=== PATIENT | female | born 1935 | race Caucasian/White ===

== ENCOUNTER 2023-09-11 14:40 | Day surgery (SDC) | payer OTHER, BC ==
[2023-09-08 13:44] LABS: Absolute Lymphocytes (CBC) 1.5 K/uL (0.7-4.9); Hematocrit 37.4 % (36.0-45.0); Lymphocytes % 13.9 % (15.3-44.8); MCV 88.2 fL (80-100); MPV 8.2 fL (7.6-11.3); Platelets 250 thou/uL (152-406); RBC Red Blood Cell Count 4.24 M/uL (3.86-4.86)
[2023-09-08 13:55] LABS: Protime INR 1.04
[2023-09-08 13:56] LABS: Potassium 4.3 mEq/L (3.5-5.1)
--- NOTE | 2023-09-08 13:56 | RAD REPORT ---
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 COMPARISON: CHEST PA AND LAT 2 VIEW dated 03/13/2010; CHEST PA AND LAT 2 VIEW dated 12/04/2008; CHEST P A AND LAT 2 VIEW dated 04/14/2007 TECHNIQUE: PA and lateral views of the chest were obtained. FINDINGS: The lungs are hyperexpanded compatible with COPD. The heart is upper limit of normal in si ze. No fracture or aggressive bony process. IMPRESSION: COPD without acute process identified. The USPSTF recommends annual screening for lung cancer with low-dose CT (LDCT) in adults aged 50 to 8 0 years who have a 20 pack-year smoking history and currently smoke or have quit within the past 15 y ears.
--- NOTE | 2023-09-09 18:06 | EKG ---
Test Date: 2023-09-08 Test Time: 13:20:28 Bioprocessing Manufacturing Technician: BHASKAR MEASUREMENT RESULTS: Intervals: Rate: 51 [place]: 182 QRSD: 138 QT: 534 QTc: 492 [place]: P: 58 [place]: 182 QRS: -41 T: 78 INTERPRETIVE STATEMENTS: Sinus bradycardia Left axis deviation Right bundle branch block Abnormal ECG Compared to ECG 10/14/2005 13:51:00 Left-axis deviation now present Right bundle-branch block now present Electronically Signed On 09-09-23 18:03:29 CDT by Andrew Curry
[2023-09-11 15:56] VITALS: TEMP 98
[2023-09-11] MEDS ORDERED: FENTANYL CITR 100 MCG/2 ML ONE ×2 (15:59→17:29)
[2023-09-11] MEDS ORDERED: LIDOCAINE 1% 20 ML MDV ONE ×2 (15:59→16:33)
[2023-09-11] MEDS ORDERED: MIDAZOLAM HCL 2 MG/2 ML INJ ONE ×2 (15:59→17:29)
[2023-09-11] MEDS ORDERED: CLOPIDOGREL 75 MG TABLET ONE (15:59)
[2023-09-11] MEDS ORDERED: ASPIRIN 325 MG TAB ONE (16:00)
[2023-09-11] MEDS ORDERED: TICAGRELOR 90 MG TABLET PO ONE (16:00)
[2023-09-11] MEDS ORDERED: NA CHLORIDE 0.9% 500 ML ONE (16:00)
[2023-09-11] MEDS ORDERED: ATROPINE SULF 1 MG/10 ML SYR IV ONE ×3 (16:00→17:30)
[2023-09-11] MEDS ORDERED: DIPHENHYDRAMINE 50 MG/ML VIAL ONE (16:07)
[2023-09-11] MEDS ORDERED: METHYLPREDNISOLONE 125 MG INJ ONE (16:08)
[2023-09-11] MEDS ORDERED: HEPARIN 10,000 UNIT/10 ML VIAL IV ONE ×2 (16:45→16:46)
[2023-09-11] MEDS ORDERED: REGADENOSON 0.4 MG/5 ML SYR IV ONE (16:46)
[2023-09-11] MEDS ORDERED: HEPARIN 5000 UNIT/ML 1 ML VIAL ONE (17:29)
[2023-09-11] MEDS ORDERED: HEPA 1000U/500MLS 2,000 UNIT/1,000 ML BAG IV ONE (17:29)
[2023-09-11 19:05] VITALS: O2SAT 95
[2023-09-11 19:47] VITALS: BP 131/84
--- NOTE | 2023-09-11 20:08 | OP ---
Date of Procedure: 09/11/2023 Surgeon: MICHEAL HECK Procedure Performed: 1.Selective coronary angiogram. 2.Left heart catheterization. 3.Right heart catheterization. Indication: Aortic valve stenosis and chest pain. Access: 1.Right femoral vein, 7-S[place], closed with manual pressure. 2.Right IJ, 7-[place], closed with manual pressure. 3.Right femoral artery, 6-[place], closed with 6-S[place] Angio-Seal. Complications: None. Bleeding: Less than 20 mL. Anesthesia: Total sedation time was 1 hour. Description Of Procedure: After risks, benefits, and alternatives were explained, the agreed to proc edure, and signed informed consent. Patient was brought to the cardiac catheterization laboratory, p repped and draped in usual sterile fashion. Then, I accessed right femoral artery using micropunctur e kit, ultrasound guidance, and fluoroscopy. Placed 6-S[place] Arabian Pyote sheath and accessed right femo ral vein as well. I could not pass a Maupin through the right femoral vein site, so I accessed the rig ht IJ using micropuncture kit, ultrasound guidance, and placed a 6-S[place] Pyote sheath and took a 7-S[place] balloon-tipped Maupin catheter through the right IJ access into right atrium, right ventricle, pulmonary artery and wedge, obtained waveform and pressure and then thermodilution cardiac output wa s obtained and then removed the Maupin. Then, I took 6-S[place] JL3-5 catheter through the arterial acce ss in the femoral artery into the aortic root, engaged the left main, took standard views, and then t ook 3DRC catheter, engaged the RCA, took standard views and then I passed the catheter over the wire into the LV, measured the LVEDP, pullback recorded a gradient, and then I gave systemic heparin to as sure ACT level above 250 and took EBU 3.5 guide 6-S[place] to the aortic root, engaged the left main, a nd took a pressure wire into the aortic root. Pressures were equalized and then the pressure wire wa s advanced into the LAD passing the area of stenosis and FFR was performed using Lexiscan. It was 0. 92, and then pullback did not show any drift. Final angiogram was satisfactory and then removed the catheter, the guide, and the sheath and placed a 6-S[place] Arabian Angio-Seal for closure and removed the femo ral vein sheath and the IJ sheath and manual pressure was used in both locations with good hemostasis . Findings: 1.Left main: Large and normal. 2.LAD: In the proximal segment right before the bifurcation of D1, there is 60% stenosis. FFR is 0 .92. The rest of the LAD is normal. Normal diagonal branches. 3.The circumflex is large and dominant and normal. 4.RCA small, nondominant normal. 5.LVEDP elevated at 20 mmHg. 6.Right heart catheterization showed RA pressure of 9. RV pressure 44/1, mean of 11. PA pressure 4 5/17, mean of 28. Pulmonary wedge was 17 and LVEDP was 20. Cardiac output was 4.9 L/minute. Mean g radient across aortic valve was 21 mmHg and valve area was 1.24 sq cm. Conclusion: 1.Moderate proximal LAD stenosis, negative by FFR 0.92. 2.Moderate aortic valve stenosis with a mean gradient of 21 mmHg and valve area of 1.24 sq cm. 3.Elevated LVEDP and filling pressure. Plan: Continue medical management and monitoring and diuretics. SR/MODL Voice ID: [id number] Report ID: [id number]
== END 2023-09-11 19:52 | disposition home or self-care (01) ==
LOC: CCL 14:40
PROVIDERS: ATTEND Internal Medicine
DX: I35.0 Nonrheumatic aortic (valve) stenosis (principal); I25.10 Atherosclerotic heart disease of native coronary artery without angina pectoris; I10 Essential (primary) hypertension; E78.2 Mixed hyperlipidemia; Z87.891 Personal history of nicotine dependence; Z79.82 Long term (current) use of aspirin; Z79.899 Other long term (current) drug therapy; Z82.49 Family history of ischemic heart disease and other diseases of the circulatory system
CPT/HCPCS: 93005; 85025; 80048; 36415; 83721; 85610; 85730; 71046; 93460; 76937; 93571; C1893; Q9966; C1760; G0269; J1644; J2785; J2001 ×2; J1200; J0461 ×2; J2250 ×2; J3010 ×2; J2930; J7040; C1769

== ENCOUNTER → 2024-07-25 | Day surgery (SDC) | payer OTHER, BC ==
--- NOTE | 2024-07-18 12:03 | RAD REPORT ---
EXAM DESCRIPTION: RAD - Chest Single View - 07/18/2024 11:53 am CLINICAL HISTORY: pre procedure Chest pain. COMPARISON: Chest Pa And Lat (2 Views) dated 09/08/2023; CHEST PA AND LAT 2 VIEW dated 03/13/2010; AMMY ST PA AND LAT 2 VIEW dated 12/04/2008; CHEST PA AND LAT 2 VIEW dated 04/14/2007 FINDINGS: Portable technique limits examination quality. Mild pulmonary edema. The heart is moderately enlarged. No displaced fractures.Significant degenerati ve change right shoulder. IMPRESSION: Mild CHF.
[2024-07-18 12:18] LABS: Absolute Basophils 0.1 K/uL (0-0.5); Absolute Eosinophils 0.3 K/uL (0-0.5); Absolute Lymphocytes (CBC) 1.2 K/uL (0.7-4.9); Absolute Monocytes 0.7 K/uL (0.1-1.3); Absolute Neutrophil 8.1 K/uL (1.8-8.0); Basophils % 0.6 % (0-1.3); Eosinophils % 2.7 % (0-4.4); Hematocrit 34.8 % (36.0-45.0); Hemoglobin 11.4 g/dL (12.0-15.0); Lymphocytes % 11.3 % (15.3-44.8); MCH 28.7 pg (27.0-35.0); MCHC 32.6 g/dL (32.0-36.0); MCV 87.9 fL (80-100); Neutrophils % 78.4 % (41.7-73.7); Platelets 239 thou/uL (152-406); RBC Red Blood Cell Count 3.96 M/uL (3.86-4.86); Red Cell Distribution Width 13.7 % (12.1-15.2)
[2024-07-18 12:30] LABS: Anion Gap 8.5 mEq/L (5.0-15.0); Potassium 4.5 mEq/L (3.5-5.1)
[2024-07-18 12:36] LABS: PT Prothrombin Time 12.6 SECONDS (9.4-12.5); Protime INR 1.13
--- NOTE | 2024-07-19 16:56 | EKG ---
Test Date: 2024-07-18 Test Time: 11:00:08 Director Product: ILAN MEASUREMENT RESULTS: Intervals: Rate: 51 ID: [id number] QRSD: 144 QT: 530 QTc: 488 [place]: P: 71 ID: [id number] QRS: -47 T: 67 INTERPRETIVE STATEMENTS: Sinus bradycardia Right bundle branch block Left anterior fascicular block Bifascicular block Septal infarct, age undetermined Abnormal ECG Compared to ECG 09/08/2023 13:20:28 Left anterior fascicular block now present Bifascicular block now present Myocardial infarct finding now present Left-axis deviation no longer present Electronically Signed On 07-19-24 16:53:19 CDT by Andrew Curry
[~2024-07-25] MED LIST: ATROPINE SULF 1 MG/10 ML SYR IV ONE; FENTANYL CITR 100 MCG/2 ML ONE; HEPA 1000U/500MLS 2,000 UNIT/1,000 ML BAG IV ONE; HEPARIN 10,000 UNIT/10 ML VIAL IV ONE; HEPARIN 5000 UNIT/ML 1 ML VIAL ONE; LIDOCAINE 1% 20 ML MDV ONE; MIDAZOLAM HCL 2 MG/2 ML INJ ONE; NA CHLORIDE 0.9% 500 ML ONE; VERAPAMIL HCL 10 MG/4 ML VIAL IV ONE
[2024-07-25 17:15] VITALS: BP 158/61
[2024-07-25 17:18] VITALS: O2SAT 99
--- NOTE | 2024-07-25 22:09 | OP ---
Date of Procedure: 07/25/2024 Surgeon: MICHEAL HECK Procedure Performed: Peripheral angiogram. Indications: 1.Peripheral vascular disease. 2.Evaluation for TAVR access as I was not able to see the groin arteries in the CT. Access: Right radial artery 6-Marshallese, closed with TR band. Complications: None. Bleeding: Less than 50 mL. Total Sedation Time: 45 minutes. Description Of Procedure: After risks, benefits, and alternatives were explained, patient agreed to procedure and signed informed consent. The patient was brought into cardiac catheterization laborato , prepped and draped in sterile fashion. Then, I accessed right radial artery using pediatric micr opuncture kit, placed 6-Marshallese slender sheath and took a long 4-Marshallese pigtail catheter, placed in di stal aorta, performed distal aortogram with runoff. Then, I removed the catheter and the sheath, jessica shannan TR band with good hemostasis. Findings: 1.Left distal aorta was widely patent. 2.Right lower extremity, right common iliac, external iliac, internal iliac, common femoral artery, profunda are widely patent without disease. The SFA is widely patent all the way to the distal porti on. There is mild 20% to 30% stenosis and three-vessel runoff below the knee are widely open. 3.Left lower extremity, slightly more tortuous, but normal. Common iliac, external iliac, internal iliac, common femoral, and profunda. SFA is widely normal. There is focal 40% distally and poplitea l artery is normal. Anterior tibial is normal and posterior tibial is occluded and peroneal is carlos l. Conclusion: 1.Peripheral vascular disease as above, mainly posterior tibial on the left side is occluded. Other kay, it is mild SFA disease bilaterally. 2.Widely patent common femoral, iliac arteries both sites suitable for TAVR. Recommendation: Medical management and proceed with TAVR with the right common femoral artery being the access site. SR/MODL Voice ID: [id number] Report ID: [id number]
== END ==
LOC: CCL 13:14
PROVIDERS: ATTEND Internal Medicine
DX: I70.223 Atherosclerosis of native arteries of extremities with rest pain, bilateral legs (principal); I70.92 Chronic total occlusion of artery of the extremities; I25.10 Atherosclerotic heart disease of native coronary artery without angina pectoris; I35.0 Nonrheumatic aortic (valve) stenosis; I10 Essential (primary) hypertension; E78.2 Mixed hyperlipidemia; Z87.891 Personal history of nicotine dependence; Z79.82 Long term (current) use of aspirin; Z79.899 Other long term (current) drug therapy; Z91.013 Allergy to seafood; Z82.49 Family history of ischemic heart disease and other diseases of the circulatory system
CPT/HCPCS: 93005; 85025; 80048; 36415; 85610; 85730; 71045; 36200; 75630; 76937; C1893; J1644; J2001; J3010; J7040; 99152; J0461; J2250

== ENCOUNTER 2024-08-20 15:50 | Inpatient (IN) | payer OTHER, BC ==
[2024-08-21] MEDS ORDERED: ACETAMINOPHEN 500 MG TAB PO PRN (00:31)
[2024-08-21 00:41] VITALS: BMI 37.5
[2024-08-21 05:40] LABS: Absolute Basophils 0.1 K/uL (0-0.5); Absolute Eosinophils 0.5 K/uL (0-0.5); Absolute Lymphocytes (CBC) 1.7 K/uL (0.7-4.9); Absolute Monocytes 1.4 K/uL (0.1-1.3); Basophils % 0.8 % (0-1.3); Hematocrit 31.6 % (36.0-45.0); Hemoglobin 10.1 g/dL (12.0-15.0); Lymphocytes % 13.7 % (15.3-44.8); MCH 27.9 pg (27.0-35.0); MCHC 32.1 g/dL (32.0-36.0); MCV 86.9 fL (80-100); MPV 8.3 fL (7.6-11.3); Monocytes % 10.8 % (3.3-12.3); Neutrophils % 70.7 % (41.7-73.7); Platelets 171 thou/uL (152-406); RBC Red Blood Cell Count 3.64 M/uL (3.86-4.86); Red Cell Distribution Width 13.4 % (12.1-15.2)
[2024-08-21 05:56] LABS: Albumin 2.2 g/dL (3.4-5.0); Anion Gap 8.1 mEq/L (5.0-15.0); Magnesium 2.1 mg/dL (1.6-2.4); Potassium 4.1 mEq/L (3.5-5.1); Prealbumin 10.2 mg/dL (20-40)
[2024-08-21] MEDS: LEVOTHYROXINE SOD 0.112 MG TAB PO SCH (07:11)
[2024-08-21] MEDS: DOCUSATE NA/SENNA CONC 1 TAB PO SCH (07:11)
[2024-08-21] MEDS: PANTOPRAZOLE 40MG TABLET PO SCH (07:11)
[2024-08-21] MEDS: LEVOTHYROXINE SOD 0.025 MG TAB PO SCH (07:12)
[2024-08-21] MEDS: MEMANTINE HCL 10 MG TABLET PO SCH (07:12)
[2024-08-21] MEDS: lisinopriL 20 MG TAB PO SCH (07:13)
[2024-08-21] MEDS: DONEPEZIL HCL 5 MG TAB PO SCH (07:13)
[2024-08-21] MEDS: ASPIRIN 81 MG CHEWABLE TABLET PO SCH (07:13)
[2024-08-21] MEDS: ESCITALOPRAM 20 MG TAB PO SCH (07:13)
[2024-08-21] MEDS: hydroCHLOROthiazide 12.5 MG CAP PO SCH (07:14)
[2024-08-21] MEDS: FLUTICASONE 50MCG NASAL SPRAY NAS SCH (08:00)
[2024-08-21] MEDS: FEXOFENADINE 180 MG TAB PO SCH (08:00)
[2024-08-21] MEDS: TOLTERODINE LA 4 MG CAP PO SCH (08:55)
[2024-08-21] MEDS: FUROSEMIDE 20 MG TABLET PO SCH (08:56)
[2024-08-21 12:07] LABS: Specific Gravity 1.008 (1.005-1.030); Sqamous Epithelial <5 /HPF (None Seen); Urine Bacteria None Seen /HPF (<20); Urine Bilirubin NEGATIVE (Negative); Urine Blood Negative (Negative); Urine Clarity Clear (Clear); Urine Color Colorless (Yellow); Urine Culture Reflex Order NOT NEEDED; Urine Glucose NEGATIVE (Negative); Urine Ketones NEGATIVE (Negative); Urine Micro Reflex YN NO BILL MICROSCOPIC; Urine Nitrite NEGATIVE (Negative); Urine Protein NEGATIVE (Negative); Urine RBC <5 /HPF (None Seen); Urine Urobilinogen Normal (Normal); Urine WBC <5 /HPF (<5); Urine pH 6.5 (5.0-7.0)
[2024-08-21] MEDS: APIXABAN 2.5 MG TABLET PO SCH (19:18)
[2024-08-21] MEDS: ROSUVASTATIN 5 MG TAB PO SCH (19:18)
[2024-08-21] MEDS: CRANBERRY FRUIT EXTRACT 200 MG CAP PO SCH (19:18)
[2024-08-22] MEDS: FLUTICASONE 50MCG NASAL SPRAY NAS SCH (09:14)
[2024-08-22] MEDS: FEXOFENADINE 180 MG TAB PO SCH (09:15)
[2024-08-22] MEDS: ENSURE ENLIVE 237 ML CAN PO SCH (10:14)
[2024-08-22] MEDS ORDERED: ENSURE ENLIVE 237 ML CAN PO PRN (10:57)
--- NOTE | 2024-08-22 12:16 | RAD REPORT ---
EXAMINATION: ONE VIEW CHEST XR CLINICAL INDICATION: cough TECHNIQUE: Frontal chest projection is submitted. Examination is limited by patient positioning and t echnique. COMPARISON: 07/18/2024 FINDINGS: The lungs are mildly fibrotic but clear of acute infiltrate. Heart is mildly enlarged with a dual-esvin d pacer device present. Aortic valve stent noted. Quite advanced degenerative changes are seen in the right shoulder. IMPRESSION: No acute intrathoracic abnormalities.
--- NOTE | 2024-08-22 20:42 | HP ---
Date of Admission: 08/20/2024 Date of service: 08/21/24 Time of service: 6 p.m. Chief Complaint: "I had heart surgery and I am weak. I need to get stronger." History Of Present Illness: Ms. Callejas is an 89-year-old right-handed patient with hypertension, dyslipidemia, hypothyroidism, nonrheumatic mitral valve disease, aortic stenosis, GE reflux, who was admitted to [facility] on 08/16/2024 for TAVR procedure. Procedure was complicated by heart block, requiring temporary pacemaker. On 08/17, she went back to have a permanent pacemaker placed. She was put on aspirin, Plavix, statin, and had IV fluid management with Lasix and potassium replacement. She had trending up white blood cell count to 11.5 on 08/18 up to 14, subsequently. In terms of her capacity of her level of functioning prior to her requiring the TAVR procedure, she was able to function with minimum assistance and continued performing her activities of daily living without significant difficulty. Subsequently, she is nonweightbearing status in the left upper extremity after the pacemaker placement. She does require increased assistance for transfers, maximum assistance for bed mobilization and to just be able to maintain her position upright at the edge of the bed. She also has had a rotator cuff surgery in the right upper extremity and arthritis, which has caused significant increase in her pain level. At this point, given her recent cardiac procedure, CHF myopathy, from the time of hospitalization, it is determined that she is a more appropriate candidate for inpatient rehabilitation versus to be discharged to alf where she is likely to not thrive. This may help return her to her prior level of functioning and reduce the risk of rehospitalization. Past Medical History: Dementia, GE reflux, TIA, right total knee replacement, right rotator cuff surgery, status post TAVR procedure, and dual pacemaker placement. Allergies: CLAVULANIC ACID, GABAPENTIN, NAPROXEN, PENICILLIN, PHENYTOIN, SHRIMP, AND PIROXICAM. Current Medications: Tylenol Extra Strength 500 mg every 4 hours as needed, Eliquis 2.5 mg twice daily, aspirin 81 mg daily, Aricept 10 mg twice daily, Lexapro 10 mg daily, Fela 90 mg daily, Lasix 20 mg daily, hydrochlorothiazide 12.5 mg daily, levothyroxine 0.025 mg daily plus 0.112 mg daily, Prinivil 20 mg daily, Namenda 10 mg daily, Ensure Enlive 237 mL twice daily, Protonix 40 mg daily, Crestor 5 mg at bedtime, Senokot-S 2 twice daily, and Detrol long-acting 4 mg daily. Family History: Noncontributory. X-ray/imaging: Chest x-ray on 07/19 shows interval placement of a left pacemaker and removal of right-sided pacemaker. Otherwise, no acute changes. Chest x-ray, 08/18, borderline cardiomegaly with signs of mild vascular congestion, pulmonary edema. Left chest wall, 2-lead pacemaker noted, well positioned, and cardiac leads. Laboratory Studies: White blood cell count is 12.7, hemoglobin 10.1, platelets 173. Her neutrophils are 70.7. Sodium 141, potassium 4.1, chloride 105, carbon dioxide 32, creatinine 1.24, BUN 29, glucose 105, calcium 8.5, magnesium 2.1, albumin 2.2, prealbumin 10.2. Urinalysis is completely normal. Social History: No alcohol, tobacco, or IV drug use. Patient lives in a single-family home. Code status is full code. Review of Systems: Some mild swelling in the legs. Mild shortness of breath. Otherwise, diffuse weakness in the upper and lower extremities, more proximal than distal. Current Level Of Functioning: Eating, setup assistance. Supervision for oral hygiene. Dependent for toilet hygiene. Maximum assistance for showering. Upper body dressing, also maximum assistance. Lower body dressing, dependent. For rolling [id number] and [id number], she is for maximum assistance to dependent. Lying to sitting to standing, maximum assistance. Transferring to a wheelchair, maximum assistance. Onto the toilet and shower, maximum assistance. Ambulation, maximum assistance with a rolling walker 2 feet. Physical Examination: Vital Signs: Blood pressure 157/70, pulse 60, respiratory rate 17, temperature 97.9, oxygen saturation 95%. Weight 240 pounds. Height 5 feet 7 inches, BMI 37.6. General: Ms. Callejas is resting comfortably in no acute distress. She is planning to using the restroom. HEENT: Normocephalic, atraumatic. Sclerae anicteric. Oropharynx pink and moist. Neck: Supple. Chest: Mildly decreased breath sounds. Extremities: Mild edema in the lower extremities. Proximal weakness over distal in the upper and lower extremities, 4/5, stocking-glove loss, light touch and temperature. Rehab And Medical Assessment And Plan: Ms. Callejas is admitted to the inpatient rehabilitation unit with impairment category 06, neurological condition. Her impairment group code is 03.8, neuromuscular disorders. Etiologic diagnosis, CHF myopathy. Comorbidities are aortic stenosis, coronary artery disease, cardiomegaly, decreased mobility, decreased physical functioning, dementia, hypertension, hypothyroidism, leukocytosis, pacemaker placement, pulmonary edema, pulmonary hypertension, tachycardia with recurrent falls. In addition, there is venous insufficiency and nonrheumatic mitral valve stenosis. Plan: She will have physical, occupational, and speech therapy for 3.5 hours, 5 of 7 days. I will manage hypothyroidism by continuing Synthroid a total of 0.137 mg daily, Prinivil for hypertension at 20 mg daily along with hydrochlorothiazide and Lasix for fluid management. I will continue aspirin 81 mg daily for stroke risk reduction, donepezil 10 mg twice daily and memantine 10 mg daily for dementia, Tylenol for pain. For depression, Lexapro 10 mg daily. For allergies, Fela 90 mg daily. For GE reflux, continue Protonix 40 mg daily. For dyslipidemia, Crestor 5 mg at bedtime. She also has Senokot S for constipation, and for urinary retention, Detrol long-acting. Comorbidities That Are Impacting Rehabilitation: There is a potential for pneumonia and she will have chest x-ray done. She will have incentive spirometry performed. We will have white count repeated and if need be, we will have procalcitonin lactic acid to rule out any systemic potential infections. Also volume issues will have to be addressed cautiously. She is on multiple diuretics and blood pressure is slightly elevated. We will have I's and O's, daily weights, to monitor volume status. Rehab Specific Plan: Ms. Callejas will have physical, occupational, and speech therapy for 3.5 hours, 5 of 7 days to improve her ability to transfer from a bed to a chair to a walker, on and off the toilet, in and out of the shower, to be able to dress herself upper and lower body and don and doff footwear, maintain her balance, perform activities of daily living. Also therapy will be geared reviewing including speech to help her make sound decisions, manage medications, be aware of safety issues, and to follow instructions appropriately. These will help to reinforce what she is throughout the physical and occupational therapy. Mr. Callejas has the good understanding of the process of admission to the inpatient rehabilitation unit and how she will benefit from physical, occupational, and speech therapy. She will have 24 hours a day, 7 days a week skilled rehabilitation nursing, daily physician evaluation and management, and social group worker evaluation and management. If need be, additional help from the hospitalist service, cardiology service, and pulmonary service will be requested. Barriers To Discharge: Currently, she has had recent heart procedure. She is at the age of 89 and somewhat debilitated, CHF myopathy. Depending on how well she recovers and how hard she works, she is hopefully able to be able to go back home and continue therapy via Home Health. However, if she does not thrive as expected, she may require more time to recover which will then be consideration for alf. Length Of Stay: About 12 days. Disposition: Back home with the Home Health and family. Prognosis: Good. Rehabilitation Specific Goals: 1. Become independent with upper and lower body dressing and donning and doffing footwear. 2. Independently perform toileting, showering, and activities of daily living. 3. Independently ambulate 250 feet with a rolling walker. 4. Independently propel a wheelchair 250 feet. 5. Independently go up and down 10 steps with bilateral handrails. 6. With supervision perform cognitive functioning. The above goals were reviewed with Ms. Callejas and she is in agreement. By signing this document, I acknowledge I personally performed a full physical examination on Ms. Callejas no later than 24 hours after her admission to the inpatient rehabilitation facility and determined that she is able to tolerate the above course of treatment at an intensive level for a reasonable period of time. A detailed individualized plan of care for her will be completed by hospital day 4 based on the preadmission screen, history and physical and therapy evaluations. GEOFFREY Voice ID: [id number] KARYNA
[2024-08-23 07:39] LABS: Absolute Basophils 0.1 K/uL (0-0.5); Absolute Eosinophils 0.6 K/uL (0-0.5); Absolute Lymphocytes (CBC) 1.4 K/uL (0.7-4.9); Absolute Monocytes 1.2 K/uL (0.1-1.3); Absolute Neutrophil 9.1 K/uL (1.8-8.0); Basophils % 0.7 % (0-1.3); Eosinophils % 4.9 % (0-4.4); Hematocrit 31.7 % (36.0-45.0); Hemoglobin 10.1 g/dL (12.0-15.0); Lymphocytes % 11.5 % (15.3-44.8); MCH 27.9 pg (27.0-35.0); MCV 87.3 fL (80-100); Monocytes % 9.6 % (3.3-12.3); Neutrophils % 73.3 % (41.7-73.7); Platelets 214 thou/uL (152-406); RBC Red Blood Cell Count 3.63 M/uL (3.86-4.86); Red Cell Distribution Width 13.4 % (12.1-15.2)
[2024-08-23 07:51] LABS: Anion Gap 6.8 mEq/L (5.0-15.0); Potassium 4.8 mEq/L (3.5-5.1)
[2024-08-23] MEDS: LIDOCAINE 4% PATCH TOP SCH (08:33)
[2024-08-23] MEDS: TRAMADOL HCL 50 MG TAB PO PRN (10:14)
--- NOTE | 2024-08-23 14:44 | PN ---
Date of Progress Note: 08/23/2024 Time Of Service: 9:00 a.m. Chief Complaint: "I am already sweating. I did a little bit of exercise that might need a shower." Subjective: Ms. Callejas is sitting in a chair. She is just out of the room, mobilizing the wheelchair with her feet and arms. She said she is being fatigued fairly easily. She would like to become stronger. She denies any other issues such as nausea or vomiting. There is mild pain in the right knee. There is a pain patch around the patellar area on the right, from where she has had chronic knee pain. She has already had bilateral knee replacement. Review of Systems: No fevers, chills, myalgias, arthralgias. No rash. No headache. No psychiatric complaints. No active gastrointestinal or genitourinary complaints. Physical Examination: Vital Signs: Blood pressure 127/56, pulse 61, respiratory rate 17, temperature 98.4, oxygen saturation 96%. Weight 240 pounds, height 5 feet 7 inches, BMI 37.6. General: Ms. Callejas again is sitting in a chair, wheeling herself from the room to the gym. HEENT: She is normocephalic, atraumatic. Sclerae anicteric. Oropharynx is moist. Neck: Supple. Extremities: Mild edema. Some stasis changes in both lower extremities to the mid leg. Laboratory Studies: White blood cell count 12.5, two days ago was 12.7; hemoglobin 10.1; platelets 214. Sodium 137, potassium 4.8, chloride 102, BUN 46, creatinine 1.68, glucose 105, calcium 9.0. X-rays/imaging: No new x-rays or imaging today. There is a chest x-ray done yesterday and that study showed no acute intrathoracic abnormalities. Progress Made With Physical And Occupational Therapy: With physical therapy, she ambulated 5 feet, 10 feet, and 15 feet with a rolling walker with partial assistance. She did step forward and backward using parallel bars for 2 minutes. She did sit at the edge of the bed with partial assistance. [id number]-gwzbl and transfer to wheelchair, required maximum assistance. Her occupational therapy, performed wheelchair to toilet and wheelchair to shower transfers using grab bars motivating pacemaker precautions. She had a pacemaker course in place. She is not receiving speech therapy. Assessment: Ms. 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 She has aortic stenosis, coronary artery disease, cardiomegaly, decreased mobility, decreased physical functioning, dementia, hypertension, hypothyroidism, leukocytosis, recent cardiac pacemaker placement with precautions in terms of breathing, pulmonary edema, hypertension, tachycardia, venous insufficiency, and nonrheumatic mitral valve stenosis. Plan: She will continue with physical and occupational therapy for 3 hours a day, 5 of 7 days. We will continue addressing her fluid management with Lasix 20 mg daily, Fela for allergies, Lexapro for depression, Aricept for dementia, aspirin for stroke risk reduction, Eliquis 2.5 mg twice a day for DVT risk reduction. She has Tylenol on board for pain, hydrochlorothiazide to help with fluid management. For hypothyroidism, Synthroid is on board; Prinivil for blood pressure control, Namenda is added for her dementia. She has Senokot for constipation, Detrol long-acting for urinary retention, tramadol for pain, Crestor for dyslipidemia. JEROME/MANA Voice ID: [id number] Report ID: [id number] KARYNA
[2024-08-23] MEDS: CYANOCOBALAMIN 1000MCG/ML INJ IM ONE (15:30)
[2024-08-23] MEDS: lisinopriL 10 MG TAB PO SCH (19:23)
--- NOTE | 2024-08-24 22:39 | PN ---
Date of Progress Note: 08/24/2024 Time Of Service: 1 p.m. Subjective: Ms. Callejas is resting in a chair in between therapy sessions as she feels she is improvi ng, but still has a long way to go, still weak and has difficulty transferring and performing activit ies of daily living. Review of Systems: No fevers, chills. No nausea, vomiting. Mild myalgias, arthralgias. Her right leg and knee pain is still present, but improved with a pain patch. There is drainage there and a dressing is applied. She was told today that Dr. Valdez is no longer accepting Medicare patients and she may have to see another orthopedic surgeon. Dr. Stiven Ryan may be contacted and see if she can have an appointmen t set. Physical Examination: Vital Signs: Blood pressure 116/53, pulse of 60, respiratory rate 18, temperature 98.0, oxygen satur ation 98%. General: Ms. Callejas again is sitting in her chair. HEENT: She appears normocephalic, atraumatic. Sclerae anicteric. Extremities: Lichenification noted in the legs. There is a bandage over the right knee and over the right anterior leg with good hemostasis. Laboratory Studies: No new laboratory studies today. Creatinine yesterday 1.68, increased from 1.24 . She will have hydration increased to address that. White blood cell count is slightly decreased a t 12.5 on the 15th from 12.7 on the 13th. X-ray/imaging: No new x-rays or imaging. Progress Made With Physical And Occupational Therapy: With her physical therapy today, she performed bilateral seated lower extremity rehabilitation exercises 25 feet. She ambulated with a rolling wal ker 125 feet twice and 255 feet twice with contact guard assistance. Mobilized wheelchair 40 feet wi th minimum assistance. With occupational therapy, she did self-propel a wheelchair, bilateral lower extremities, forward and backwards in the gym room and did fairly well. Vst-ib-fkmas transfers done with contact guard assistance. She is consistent with nonweightbearing to the left upper extremity, where she has again pacemaker and precautions present. Assessment: Ms. Callejas is an 89-year-old patient with congestive heart failure myopathy, who is mu ng fair progress overall with her physical and occupational therapy. She has congestive heart failur e, aortic stenosis, cardiomyopathy, decreased mobility, decreased physical functioning, dementia, hyp ertension, hypothyroidism, leukocytosis, recent cardiac pacemaker placement with nonweightbearing lef t upper extremity, hypertension, tachycardia, venous insufficiency. Plan: She will continue with physical and occupational therapy for 3 hours a day, 5 of 7 days. She has multiple medications to continue including Eliquis 2.5 mg twice daily for DVT prophylaxis; Tyleno l for pain; aspirin for stroke risk reduction; donepezil for her memory loss, Lexapro for depression, Fela for allergies, Lasix for fluid management, Synthroid for hypothyroidism, Prinivil for mainta ining blood pressure, still continuing the Namenda along with the donepezil for her memory loss, Prot amadou for GE reflux, Crestor for dyslipidemia, Senokot-S for constipation, Detrol for urinary retentio n, and tramadol for pain. JEROME/MANA Voice ID: [id number] Report ID: [id number]
[2024-08-25 09:40] LABS: Absolute Basophils 0.1 K/uL (0-0.5); Absolute Eosinophils 0.5 K/uL (0-0.5); Absolute Monocytes 0.7 K/uL (0.1-1.3); Basophils % 0.9 % (0-1.3); Eosinophils % 4.7 % (0-4.4); Hematocrit 31.9 % (36.0-45.0); Hemoglobin 10.6 g/dL (12.0-15.0); Lymphocytes % 9.4 % (15.3-44.8); MCH 28.4 pg (27.0-35.0); MCHC 33.1 g/dL (32.0-36.0); MPV 7.9 fL (7.6-11.3); Monocytes % 6.4 % (3.3-12.3); Neutrophils % 78.6 % (41.7-73.7); Platelets 271 thou/uL (152-406); RBC Red Blood Cell Count 3.71 M/uL (3.86-4.86); Red Cell Distribution Width 13.2 % (12.1-15.2)
[2024-08-25 10:01] LABS: Albumin 2.5 g/dL (3.4-5.0); Anion Gap 6.5 mEq/L (5.0-15.0); Magnesium 2.2 mg/dL (1.6-2.4); Potassium 4.5 mEq/L (3.5-5.1); Prealbumin 12.9 mg/dL (20-40)
[2024-08-25] MEDS: NA CHLORIDE 0.9% 1,000 ML IV SCH ×2 (16:00→19:44)
[2024-08-26 06:51] LABS: Anion Gap 7.4 mEq/L (5.0-15.0); Magnesium 2.4 mg/dL (1.6-2.4); Potassium 4.4 mEq/L (3.5-5.1)
--- NOTE | 2024-08-26 13:44 | P.RH.PN ---
Estimated Length of Stay: 13 Expected Discharge Date: 08/30/24 Discharge Disposition Plan: Home Family Support: Yes Correction Goal: Mobility, Transfers, Self Care Vital Signs: Last Vital Signs Temp 97.8 F 08/26/24 07:59 Pulse 61 08/26/24 08:48 Resp 17 08/26/24 07:59 BP 127/45 L 08/26/24 08:48 Pulse Ox 98 08/26/24 07:59 Laboratory: Laboratory Last Values WBC 10.20 thou/uL (4.3-10.9) 08/25/24 09:11 RBC 3.71 M/uL (3.86-4.86) L 08/25/24 09:11 Hgb 10.6 g/dL (12.0-15.0) L 08/25/24 09:11 Hct 31.9 % (36.0-45.0) L 08/25/24 09:11 MCV 86.0 fL (80-100) 08/25/24 09:11 MCH 28.4 pg (27.0-35.0) 08/25/24 09:11 MCHC 33.1 g/dL (32.0-36.0) 08/25/24 09:11 RDW 13.2 % (12.1-15.2) 08/25/24 09:11 Plt Count 271 thou/uL (152-406) 08/25/24 09:11 MPV 7.9 fL (7.6-11.3) 08/25/24 09:11 Neutrophils % 78.6 % (41.7-73.7) H 08/25/24 09:11 Lymphocytes % 9.4 % (15.3-44.8) L 08/25/24 09:11 Monocytes % 6.4 % (3.3-12.3) 08/25/24 09:11 Eosinophils % 4.7 % (0-4.4) H 08/25/24 09:11 Basophils % 0.9 % (0-1.3) 08/25/24 09:11 Absolute Neutrophils 8.0 K/uL (1.8-8.0) 08/25/24 09:11 Absolute Lymphocytes 1.0 K/uL (0.7-4.9) 08/25/24 09:11 Absolute Monocytes 0.7 K/uL (0.1-1.3) 08/25/24 09:11 Absolute Eosinophils 0.5 K/uL (0-0.5) 08/25/24 09:11 Absolute Basophils 0.1 K/uL (0-0.5) 08/25/24 09:11 Sodium 138 mEq/L (136-145) 08/26/24 06:00 Potassium 4.4 mEq/L (3.5-5.1) 08/26/24 06:00 Chloride 107 mEq/L (98-107) 08/26/24 06:00 Carbon Dioxide 28 mEq/L (21-32) 08/26/24 06:00 Anion Gap 7.4 mEq/L (5.0-15.0) 08/26/24 06:00 BUN 53 mg/dL (7-18) H 08/26/24 06:00 Creatinine 1.72 mg/dL (0.55-1.02) H 08/26/24 06:00 Est GFR (CKD-EPI) 28 ml/min (=/>90) L 08/26/24 06:00 Glucose 94 mg/dL (74-106) 08/26/24 06:00 Calcium 9.2 mg/dL (8.5-10.1) 08/26/24 06:00 Magnesium 2.4 mg/dL (1.6-2.4) 08/26/24 06:00 Albumin 2.5 g/dL (3.4-5.0) L 08/25/24 09:11 Prealbumin 12.9 mg/dL (20-40) L 08/25/24 09:11 Urine Color Colorless (Yellow) 08/21/24 11:50 Urine Clarity Clear (Clear) 08/21/24 11:50 Urine pH 6.5 (5.0-7.0) 08/21/24 11:50 Ur Specific Milburn 1.008 (1.005-1.030) 08/21/24 11:50 Glucose (UA)(Auto) Negative (Negative) 08/21/24 11:50 Urine Ketones Negative (Negative) 08/21/24 11:50 Urine Blood Negative (Negative) 08/21/24 11:50 Urine Nitrite Negative (Negative) 08/21/24 11:50 Urine Bilirubin Negative (Negative) 08/21/24 11:50 Urine Urobilinogen Normal (Normal) 08/21/24 11:50 Ur Leukocyte Esterase Negative Kentrell/uL (Negative) 08/21/24 11:50 Urine RBC <5 /HPF (None Seen) 08/21/24 11:50 Urine WBC <5 /HPF (<5) 08/21/24 11:50 Ur Squamous Epith Cells <5 /HPF (None Seen) 08/21/24 11:50 Urine Bacteria None seen /HPF (<20) 08/21/24 11:50 Urine Culture Reflexed Not needed 08/21/24 11:50 Urine Total Protein Negative (Negative) 08/21/24 11:50 Weight: 240 lb Wound Present: No Closed Surgical Incision Present: Yes Negative Pressure Wound Therapy Present: No Physician Update: 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 Right and left chest incision sites show good hemostasis. Moderate pain in the right knee which has a mild to moderate effusion. She did well with bed mobility, fully dressed upper and lower body, toileting independently. Up and down 4 stairs with CGA. Achieved all STG and 3/6 with LTG with OT. Summary: Patient's care plan and roasterman goals have been reviewed and revised as necessary. Please see the Rehabilitation Signature page for all necessary signatures.
[2024-08-26] MEDS: NA CHLORIDE 0.9% 1,000 ML IV SCH (15:52)
--- NOTE | 2024-08-26 16:47 | RAD REPORT ---
Exam:Knee Right 2 View HISTORY: Right knee pain FINDINGS: No fracture or dislocation seen Visualized right knee prosthesis in good position without loosening.
[2024-08-29 05:55] LABS: Absolute Basophils 0.1 K/uL (0-0.5); Absolute Eosinophils 0.6 K/uL (0-0.5); Absolute Lymphocytes (CBC) 1.7 K/uL (0.7-4.9); Absolute Neutrophil 6.3 K/uL (1.8-8.0); Eosinophils % 6.4 % (0-4.4); Hematocrit 29.4 % (36.0-45.0); Hemoglobin 9.8 g/dL (12.0-15.0); Lymphocytes % 17.5 % (15.3-44.8); MCH 28.8 pg (27.0-35.0); MCHC 33.4 g/dL (32.0-36.0); MCV 86.1 fL (80-100); MPV 7.3 fL (7.6-11.3); Monocytes % 9.9 % (3.3-12.3); Neutrophils % 65.2 % (41.7-73.7); Nucleated Red Blood Cells % 0.1 % (0-0); Platelets 325 thou/uL (152-406); RBC Red Blood Cell Count 3.42 M/uL (3.86-4.86); Red Cell Distribution Width 13.3 % (12.1-15.2)
[2024-08-29 06:09] LABS: Anion Gap 7.3 mEq/L (5.0-15.0); Potassium 4.3 mEq/L (3.5-5.1)
--- NOTE | 2024-08-29 22:09 | PN ---
Date of Progress Note: 08/29/2024 Time Of Service: 1:10 p.m. Subjective: Ms. Callejas is lying in her bed with therapist at bedside. She does report some ongoing discomfort in the right knee, where there is still ongoing drainage. She is to be seen by the orthop edic surgeon. Hopefully, Dr. Ryan will come by to see her sometime soon. No other new complaints. Review of Systems: Again, mild myalgias, arthralgias, especially in the right knee, more on the right than on the left a nd of course, diffuse weakness in upper and lower extremities. No other new complaints. Physical Examination: Vital Signs: Blood pressure 137/60, pulse 60, respiratory rate 16, temperature 97.6, oxygen saturati on 95%. General: Ms. Callejas is resting comfortably in bed, in no acute distress. HEENT: She appears normocephalic, atraumatic. Sclerae anicteric. Oropharynx pink, moist. Neck: Supple. Chest: Clear. Extremities: Still has a warm feeling to the right knee compared to the left. Laboratory Studies: White blood cell count 9.7, hemoglobin 9.8, platelets 325. Sodium 140, potassiu m 4.3, chloride 108, carbon dioxide 29, BUN 36, creatinine 1.31, which is improved from 1.82 four day s ago. Glucose 99, calcium 9.0. X-ray/imaging: X-ray of the right knee shows no fractures, dislocation. Prosthesis is in good place without loosening. Medications: Medications have been reviewed and have not been changed. Progress Made With Physical And Occupational Therapy: With physical therapy today, she did gait merly clay, ambulating with a rolling walker 270 feet with standby assistance and mobilized a wheelchair 25 0 feet with standby assistance as well. With her occupational therapy, independent with sit to stand and transferring, ambulating from room to toilet with a rolling walker, did that independently, grab bed the grab bars independently and completed toilet hygiene, bathing, lower body dressing and footwe ar independently. Assessment: Ms. Callejas is an 89-year-old patient, admitted to the inpatient rehabilitation unit with CHF myopathy, from which she is recovering very well. 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 She has some swelling and drainage of the right knee, but normal ite blood cell count. No fever. There is some warmth today and Dr. Ryan hopefully will be able to s ee her soon. She has decreased mobility, decreased physical functioning, mild dementia, hypertension , hypothyroidism, leukocytosis, nonweightbearing in the left upper extremity where she has a cardiac pacemaker in place. Plan: She will have physical and occupational therapy. Continue 3 hours a day, 5 of 7 days. We omar l continue with Eliquis 2.5 mg twice daily for DVT prophylaxis. Continue with Lasix for fluid manage ment, hypothyroidism addressed with continuing Synthroid, Prinivil for her blood pressure, Namenda an d donepezil for dementia, Senokot for constipation, tramadol for pain. LB/MODL Voice ID: [id number] Report ID: [id number]
[2024-08-30 06:51] VITALS: TEMP 98.2
[2024-08-30 09:33] VITALS: BP 127/59
--- NOTE | 2024-09-12 08:40 | DS ---
Date of Discharge: 08/30/2024 Allergies: CLAVULANIC ACID, GABAPENTIN, NAPROXEN, PENICILLIN, PHENYTOIN, SHRIMP, PIROXICAM. Discharge Condition: Good. Disposition: The patient is discharged to [facility] as unable to be discharged home because of the support required and the family did not agree and actually demanded the patient to go to skilled . Discharge Diagnoses: Decreased mobility, decreased physical functioning, congestive heart failure my opathy, coronary artery disease, dementia, hypertension, hypothyroidism, leukocytosis, cardiac pacema ker, pulmonary edema, pulmonary hypertension, mild venous insufficiency nonrheumatic mitral valve benji nosis. Diet: Heart healthy. Weightbearing Status: As tolerated. Medications: Fexofenadine 60 mg daily, Flonase 50 mcg spray daily, Lexapro 10 mg daily, Detrol long- acting 4 mg daily, Crestor 5 mg at bedtime, Aricept 10 mg twice daily, Namenda 10 mg daily, Lasix 20 mg daily, omeprazole 20 mg daily, hydrochlorothiazide/lisinopril 20/12.5 one daily, levothyroxine 137 mcg daily, aspirin 81 mg daily, lidocaine patch apply topically daily as needed, Ensure Enlive 237 m L twice daily, and cranberry fruit extract 200 mg twice daily. Laboratory Studies: White blood cell 9.7, hemoglobin 9.8, platelets 325. Sodium 140, potassium 4.3, chloride 108, carbon dioxide 29, BUN 36, creatinine 1.31, glucose 99, calcium 9.0. Prealbumin 12.9, albumin 2.5. Urinalysis completely normal. X-ray/imaging: A knee x-ray was done on 08/26/2024, the study showed no fracture or dislocation. Vi sualized portion of the right knee prosthesis was in good position without loosening. Chest x-ray do ne on 08/22/2024 showed no acute intrathoracic abnormalities. Synopsis Of Events That Led To Admission: Ms. Callejas is an 89-year-old patient with medical problems as noted who was admitted [facility] on 08/16/2024 for a TAVR procedure. The procedure was comp licated by heart block, requiring temporary pacemaker. On 08/17, she had a permanent pacemaker place d. She was put on aspirin, Plavix, statin, IV fluid management with Lasix and potassium replacement. She had trending white blood cell count up to 14 from 11.5 on 08/18. Her level of function prior t o the procedure was at minimum assistance level, performing her activities of daily living without si gnificant difficulty. Subsequently, she was nonweightbearing in her left upper extremity after the p acemaker placement. She did require increased assistance for transfers, max assist with bed mobiliza tion and we will adjust her position in bed and to get in and out of bed. In addition, she had a rig ht rotator cuff surgery and arthritis. She did have increased pain and required management there. S he had CHF myopathy at the time of discharge was set and was therefore unable to go home and was then brought to the unit for aggressive inpatient rehabilitation along with medical management. Hospital Course: Hospital course was uncomplicated. White blood cell count as noted was slightly el evated on admission, but on discharge completely normal. Neutrophils also remained normal by dischar ge. Her electrolytes were well managed. Her kidney function was chronic renal insufficiency and adm ission creatinine 1.24 by discharge 1.31. Urinalysis was normal. X-rays were as noted above. Progress Made With Physical And Occupational Therapy: At the time of discharge regarding physical th erapy, she was able to ambulate 200 feet with good tolerance and used a rolling walker. She was able to go up and down 4 steps with fair tolerance, bilateral handrails, did have poor strength, poor end urance. Wheelchair mobilization on the carpet and multiple 150 feet. Car transfer, she d id have poor balance, poor trunk and head control, decreased strength. The patient did meet most of her long-term goals. She was unable to negotiate step with supervision, however, after that, she was independent with [id number] transfers and bed mobilization and rolling walker. It was recommend ed, patient to discharge home with Home Health and family support. Family wanted her to go to SNF an d she eventually will go to [facility]. Regarding occupational therapy, at discharge, independe nt with toileting and showering, independent. Eating independent. Grooming independent. Bathing re quired supervision. Independent with upper body dressing, lower body dressing independent. Again, she was discharged to [facility]. Followup will be with primary care physicia n as scheduled. JEROME/MANA Voice ID: [id number] Report ID: [id number]
== END 2024-08-30 10:15 | DRG 93 ==
LOC: 5TH 23:35
PROVIDERS: ADMIT Psychiatry & Neurology Neurology with Special Qualifications in Child Neurology; ATTEND Psychiatry & Neurology Neurology with Special Qualifications in Child Neurology
DX: G72.89 Other specified myopathies (principal); Z48.812 Encounter for surgical aftercare following surgery on the circulatory system; Z95.2 Presence of prosthetic heart valve; Z95.0 Presence of cardiac pacemaker; R33.9 Retention of urine, unspecified; R00.0 Tachycardia, unspecified; K59.00 Constipation, unspecified; I50.9 Heart failure, unspecified; E03.9 Hypothyroidism, unspecified; I51.7 Cardiomegaly; I27.20 Pulmonary hypertension, unspecified; I25.10 Atherosclerotic heart disease of native coronary artery without angina pectoris; F03.90 Unspecified dementia, unspecified severity, without behavioral disturbance, psychotic disturbance, mood disturbance, and anxiety; K21.9 Gastro-esophageal reflux disease without esophagitis; Z96.651 Presence of right artificial knee joint
CPT/HCPCS: 36415; 71045; 80048; 81001; 82040; 83735; 84134; 85025; 87077; 87086; 87088; 87186; 97110; 97116; 97124; 97161; 97165; 97530; 97542; J3420; J7030

== ENCOUNTER 2025-06-08 00:27 | Inpatient (IN) | payer OTHER, BC ==
[2025-06-08 02:14] LABS: Absolute Lymphocytes (CBC) 1.7 K/uL (0.7-4.9); Hematocrit 19.5 % (36.0-45.0); Hemoglobin 6.1 g/dL (12.0-15.0); MCH 23.8 pg (27.0-35.0); MCHC 31.4 g/dL (32.0-36.0); MCV 75.8 fL (80-100); MPV 7.5 fL (7.6-11.3); Nucleated RBC Absolute Count 0.0 (0-0); Nucleated Red Blood Cells % 0.1 % (0-0); RBC Red Blood Cell Count 2.58 M/uL (3.86-4.86); White Blood Count 9.10 thou/uL (4.3-10.9)
[2025-06-08 02:15] LABS: PT Prothrombin Time 18.1 SECONDS (10-13.0); PTT, Activated Partial Thromb 31.8 SECONDS (27.2-37.4); Protime INR 1.62
[2025-06-08 02:26] LABS: AST/SGOT 12 U/L (15-37); Albumin 2.6 g/dL (3.4-5.0); Albumin/Globulin Ratio 0.7 (1.1-1.8); Alkaline Phosphatase 85 U/L (45-117); Anion Gap 8.2 mEq/L (5.0-15.0); BUN Blood Urea Nitrogen 27 mg/dL (7-18); Globulin 4.0 g/dL (2.3-3.5); Glucose Level 103 mg/dL (74-106); Magnesium 2.5 mg/dL (1.6-2.4); NT PRO-BNP 1118 pg/mL (<450); Potassium 4.2 mEq/L (3.5-5.1); Troponin High Sensitivity 15.5 pg/mL (<58.9)
[2025-06-08 02:40] LABS: ALT/SGPT < 14 U/L (13-56); Bilirubin Indirect, Calculated 0.1 mg/dL (0.2-0.8)
[2025-06-08 04:55] LABS: Sqamous Epithelial <5 /HPF (None Seen); Urine Culture Reflex Order NOT NEEDED; Urine Microscopic Reflex YN ORDER UMIC
--- NOTE | 2025-06-08 05:09 | RAD REPORT ---
EXAM DESCRIPTION: Chest Single View CLINICAL HISTORY: anemia COMPARISON: None TECHNIQUE: Single AP view of the chest. FINDINGS: Left-sided cardiac conduction device. Lung volumes adequate. Cardiac silhouette is enlarged. Postoperative changes of the aortic valve. No pneumothorax. Bilateral interstitial thickening. No large pleural effusion. No focal consolidation. No acute bony finding. IMPRESSION: 1. Bilateral interstitial thickening, could represent pulmonary edema. 2. Enlarged cardiac silhouette. Electronically signed by: Clint Mike MD 06/08/2025 03:20 AM CDT TYG Due to temporary technical issues with the PACS/[employer] ([email or web address]) reporting system, reports are being orville d by the in-house radiologist without review as a courtesy to ensure prompt reporting the interpreting radiologist is fully responsible for the content of the report. Transcribed Date/Time: 06/08/2025 5:09 AM
--- NOTE | 2025-06-08 06:22 | ER ---
Nurse's Notes [facility] Name: Shakeel Callejas Age: 89 yrs Sex: Female : 1935 Arrival Date: 06/08/2025 Time: 00:27 Bed 19 Private MD: Diagnosis: Anemia, unspecified Presentation: 06/08 00:47 Chief complaint: Patient states: Sent from [facility] home for abnormal hemoglobin ss12 result of 6. Coronavirus screen: Vaccine status: Client denies travel out of the [place] in the last 14 days. Ebola Screen: Patient negative for fever greater than or equal to 101.5 degrees Fahrenheit, and additional compatible Ebola Virus Disease symptoms Patient denies exposure to infectious person. Patient denies travel to an Ebola-affected area in the 21 days before illness onset. Initial Sepsis Screen: Does the patient meet any 2 criteria? No. Patient's initial sepsis screen is negative. Does the patient have a suspected source of infection? No. Patient's initial sepsis screen is negative. Risk Assessment: Do you want to hurt yourself or someone else? Patient reports no desire to harm self or others. Onset of symptoms is unknown. 00:47 Method Of Arrival: EMS: [facility] ss12 00:47 Acuity: BRIANNE 3 ss12 00:47 Acuity: BRIANNE 3 ss12 Triage Assessment: 00:47 General: Appears in no apparent distress. comfortable, Behavior is calm, cooperative, ss12 quiet. Pain: Denies pain. EENT: No deficits noted. No signs and/or symptoms were reported regarding the EENT system. Neuro: No deficits noted. Level of Consciousness is awake, alert, obeys commands, Oriented to person, place, time, situation. Cardiovascular: No deficits noted. Denies chest pain, Patient's skin is warm and dry. Respiratory: No deficits noted. Airway is patent Respiratory effort is even, unlabored, Respiratory pattern is regular, symmetrical. GI: No deficits noted. Abdomen is round non-distended, no blood noted in BM. : No deficits noted. No signs and/or symptoms were reported regarding the genitourinary system. Derm: No deficits noted. Skin is intact, Skin is dry, Skin is pale. Musculoskeletal: No deficits noted. No signs and/or symptoms reported regarding the musculoskeletal system. Historical: - Allergies: 00:47 CLAVULANIC ACID; ss12 00:47 GABAPENTIN; ss12 00:47 Naproxen; ss12 00:47 PENICILLINS; ss12 00:47 Phenytoin; ss12 00:47 Piroxicam; ss12 00:47 shrimp; ss12 - Home Meds: 06:26 acetaminophen 325 mg Oral tablet 2 tab every 6 hours [Active]; Align (B.longum) oral 1 ss12 capsule daily [Active]; apixaban 5 mg (74 tabs) oral Tablet, Dose Pack 1 tab BID [Active]; aspirin 81 mg oral tablet 1 tab daily [Active]; baclofen 5 mg Oral tablet 1 tab nightly for muscle spasticity of spinal origin [Active]; Colace 100 mg oral capsule 1 caps daily [Active]; - PMHx: 00:47 Hypercholesterolemia; Hypertensive disorder; Hypothyroidism; ss12 - PSHx: 00:47 pacemaker 08/2024; ss12 - Immunization history:: Adult Immunizations up to date. - Infectious Disease History:: Denies. - Social history:: Smoking status: Patient denies any tobacco usage or history of. Screenin:38 [facility] ED Fall Risk Assessment (Adult) History of falling in the last 3 months, ss12 including since admission No falls in past 3 months (0 pts) Confusion or Disorientation No (0 pts) Intoxicated or Sedated No (0 pts) Impaired Gait No (0 pts) Mobility Assist Device Used No (0 pt) Altered Elimination No (0 pt) Score/Fall Risk Level 0 - 2 = Low Risk Oriented to surroundings, Maintained a safe environment, Educated pt \T\ family on fall prevention, incl call for assistance when getting out of bed, Assessed \T\ reinforced patient's understanding of fall precautions, Provided non-skid footwear. Abuse screen: Denies threats or abuse. Denies injuries from another. Nutritional screening: No deficits noted. Tuberculosis screening: No symptoms or risk factors identified. Assessment: 00:47 Reassessment: see triage assessment. 12 01:45 Reassessment: Patient appears in no apparent distress at this time. Patient and/or ss12 family updated on plan of care and expected duration. Pain level reassessed. Patient is alert, oriented x 3, equal unlabored respirations, skin warm/dry/pink. 02:40 Reassessment: Patient appears in no apparent distress at this time. Patient and/or ss12 family updated on plan of care and expected duration. Pain level reassessed. Patient is alert, oriented x 3, equal unlabored respirations, skin warm/dry/pink. 03:30 Reassessment: Pt brief changed patient incontinent of urine and small BM. No melena ss12 stool noted. 03:45 Reassessment: Patient appears in no apparent distress at this time. Patient and/or ss12 family updated on plan of care and expected duration. Pain level reassessed. Patient is alert, oriented x 3, equal unlabored respirations, skin warm/dry/pink. 05:52 Reassessment: Patient appears in no apparent distress at this time. Patient and/or ss12 family updated on plan of care and expected duration. Pain level reassessed. Patient is alert, oriented x 3, equal unlabored respirations, skin warm/dry/pink. 06:53 Reassessment: Patient appears in no apparent distress at this time. Patient and/or ss12 family updated on plan of care and expected duration. Pain level reassessed. Patient is alert, oriented x 3, equal unlabored respirations, skin warm/dry/pink. Vital Signs: 00:48 BP 128 / 39; Pulse 62; Resp 18; Temp 98.1; Pulse Ox 97% on R/A; Weight 111 kg; Height 5 oe ft. 6 in. ; 01:00 BP 133 / 46; Pulse 64; Resp 16 S; Pulse Ox 99% on R/A; ss12 02:45 BP 122 / 31; Pulse 61; Resp 18; Pulse Ox 97% ; ss12 03:30 BP 123 / 45; Pulse 61; Resp 16 S; Pulse Ox 97% on R/A; ss12 04:30 BP 123 / 41; Pulse 60; Resp 16 S; Pulse Ox 97% on R/A; ss12 06:00 BP 131 / 53; Pulse 60; Resp 16 S; Pulse Ox 97% on R/A; ss12 00:48 Body Mass Index 39.50 (111.00 kg, 167.64 cm) oe ED Course: 00:46 Patient arrived in ED. jj6 00:47 Inserted saline lock: 22 gauge in left antecubital area, using aseptic technique. Blood ss12 collected. Flushed with 10 mL NS. 00:47 Arm band placed on right wrist. ss12 00:48 [facility]an [facility] is [facility]. cp 00:48 Ronny Nicole MD is Attending Physician. cp 01:19 Tea Metcalf, RN is Primary Nurse. ss12 01:25 Triage completed. ss12 02:09 EKG done, by ED staff, reviewed by Ronny LOYA. oe 02:38 XRAY Chest (1 view) In Process Unspecified. EDMS 02:39 No provider procedures requiring assistance completed. ss12 02:39 Patient has correct armband on for positive identification. Provided Education on: plan ss12 of care. 04:58 CT Abd/Pelvis - IV Contrast Only In Process Unspecified. EDMS 06:22 Clay Zuleta FNP-C is Hospitalizing Provider. cp 06:43 Alessandra Gomez MD is Hospitalizing Provider. la1 08:28 Inserted saline lock: 22 gauge in right antecubital area, using aseptic technique. ap3 Administered Medications: 06:25 Drug: Pantoprazole IVP 40 mg IVP once Route: IVP; Site: left antecubital; ss12 06:52 Follow up: Response: No adverse reaction ss12 06:25 Drug: Pantoprazole IV 8 mg/hr IV at 25 ml/hr continuous; (Standard dilution is 80 mg in ss12 250 mL NS) Route: IV; Rate: 25 ml/hr; Site: left antecubital; Medication: 02:39 VIS not applicable for this client. ss12 Outcome: 06:22 Decision to Hospitalize by Provider. cp 13:03 Patient left the ED. ap3 Signatures: Dispatcher [employer] EDMS Clay Zuleta FNP-C HAND PACKAGER-Cla1 Ronny Keenan PA PA cp Anthony Breen oe Arlin Llanes, RN RN ap3 Sindhu Matthew jj6 Tea Metcalf, IVONNE RN ss12 Corrections: (The following items were deleted from the chart) 00:52 00:48 BP 128 / 39; Pulse 62bpm; Resp 18bpm; Pulse Ox 97% RA; Temp 98.1F; Height 5 ft. 6 oe in.; oe 00:53 00:48 BP 128 / 39; Pulse 62bpm; Resp 18bpm; Pulse Ox 97% RA; Temp 98.1F; 111.3 kg; oe Height 5 ft. 6 in.; BMI: 39.6; oe
--- NOTE | 2025-06-08 06:23 | EDPHYS ---
Physician Documentation [facility] Name: Shakeel Callejas Age: 89 yrs Sex: Female : 1935 Arrival Date: 06/08/2025 Time: 00:27 Bed 19 Private MD: ED Physician Ronny Nicole HPI: 06/08 01:00 This 89 yrs old Female presents to ER via EMS with complaints of Abnormal Lab Results. cp Historical: - Allergies: 00:47 CLAVULANIC ACID; ss12 00:47 GABAPENTIN; ss12 00:47 Naproxen; ss12 00:47 PENICILLINS; ss12 00:47 Phenytoin; ss12 00:47 Piroxicam; ss12 00:47 shrimp; ss12 - Home Meds: 06:26 acetaminophen 325 mg Oral tablet 2 tab every 6 hours [Active]; Align (B.longum) oral 1 ss12 capsule daily [Active]; apixaban 5 mg (74 tabs) oral Tablet, Dose Pack 1 tab BID [Active]; aspirin 81 mg oral tablet 1 tab daily [Active]; baclofen 5 mg Oral tablet 1 tab nightly for muscle spasticity of spinal origin [Active]; Colace 100 mg oral capsule 1 caps daily [Active]; - PMHx: 00:47 Hypercholesterolemia; Hypertensive disorder; Hypothyroidism; ss12 - PSHx: 00:47 pacemaker 08/2024; ss12 - Immunization history:: Adult Immunizations up to date. - Infectious Disease History:: Denies. - Social history:: Smoking status: Patient denies any tobacco usage or history of. ROS: 01:05 Constitutional: Negative for fever, poor PO intake, weight loss, cp 01:05 Eyes: Negative for injury, pain, redness, and discharge, cp 01:05 ENT: Negative for drainage from ear(s), ear pain, sore throat, difficulty swallowing, difficulty handling secretions, 01:05 Cardiovascular: Negative for chest pain, palpitations, 01:05 Respiratory: Negative for cough, shortness of breath, wheezing, 01:05 Abdomen/GI: Positive for abdominal pain, Negative for vomiting, diarrhea, constipation, 01:05 Neuro: Negative for altered mental status, dizziness, headache, syncope, weakness, 01:05 All other systems are negative, Exam: 01:10 Constitutional: The patient appears in no acute distress, alert, awake, comfortable, cp non-toxic, well developed, well nourished, obese, 01:10 Head/Face: Normocephalic, atraumatic. cp 01:10 Eyes: Periorbital structures: appear normal, Conjunctiva: normal, no exudate, no cp injection, Sclera: no appreciated abnormality, Lids and lashes: appear normal, bilaterally, 01:10 ENT: External ear(s): are unremarkable, Nose: is normal, Mouth: Lips: moist, Oral mucosa: moist, Posterior pharynx: Airway: no evidence of obstruction, patent, 01:10 Chest/axilla: Inspection: normal, 01:10 Cardiovascular: Rate: normal, Rhythm: regular, Edema: ankle edema, that is moderate, JVD: is not appreciated, 01:10 Respiratory: the patient does not display signs of respiratory distress, Respirations: normal, no use of accessory muscles, no retractions, labored breathing, is not present, Breath sounds: are clear throughout, no decreased breath sounds, no stridor, no wheezing, 01:10 Abdomen/GI: Inspection: obese Bowel sounds: active, all quadrants, Palpation: soft, in all quadrants, mild abdominal tenderness, in the right upper quadrant, rebound tenderness, is not appreciated, involuntary guarding, is not appreciated, 01:10 : Rectal exam: Stool: dark brown colored, 01:10 Neuro: Orientation: to person, place \T\ time. Mentation: is normal, Motor: no acute changes, Sensation: is normal, 02:05 ECG was reviewed by the Attending Physician. cp Vital Signs: 00:48 BP 128 / 39; Pulse 62; Resp 18; Temp 98.1; Pulse Ox 97% on R/A; Weight 111 kg; Height 5 oe ft. 6 in. ; 01:00 BP 133 / 46; Pulse 64; Resp 16 S; Pulse Ox 99% on R/A; ss12 02:45 BP 122 / 31; Pulse 61; Resp 18; Pulse Ox 97% ; ss12 03:30 BP 123 / 45; Pulse 61; Resp 16 S; Pulse Ox 97% on R/A; ss12 04:30 BP 123 / 41; Pulse 60; Resp 16 S; Pulse Ox 97% on R/A; ss12 06:00 BP 131 / 53; Pulse 60; Resp 16 S; Pulse Ox 97% on R/A; ss12 00:48 Body Mass Index 39.50 (111.00 kg, 167.64 cm) oe MDM: 00:55 Medical Screening Exam initiated jon 02:00 Differential diagnosis: sepsis, uti, cardiac arrhythmia, electrolyte abnormality, cp anemia, GI bleed. 06:15 ED course: DR Elias called and msg and text done with info of patient. 06:20 Data reviewed: vital signs, nurses notes, lab test result(s), EKG, radiologic studies, plain films, I have discussed the patient's presentation/case with the attending Emergency Department Physician; and as a result, I will admit patient, consult GI, transfuse 2 units. 06:20 I considered the following discharge prescriptions or medication management in the emergency department Medications were administered in the Emergency Department. See MAR. Independent interpretation of the following test(s) in the Emergency Department EKG: See my EKG interpretation above. Care significantly affected by the following chronic conditions: Hypertension, Obesity. Counseling: I had a detailed discussion with the patient and/or guardian regarding the historical points, exam findings, and any diagnostic results supporting the discharge/admit diagnosis, lab results, radiology results, the need for further work-up and treatment in the hospital. 06/08 01:00 Order name: Basic Metabolic Panel; Complete Time: 02:47 06/08 02:47 Interpretation: Normal except: BUN 27; CRE 1.22; GFR 43; CA 7.9. 06/08 01:00 Order name: CBC with Diff; Complete Time: 02:19 06/08 02:19 Interpretation: Normal except: RBC 2.58; HGB 6.1; HCT 19.5; MCV 75.8; MCH 23.8; MCHC cp 31.4; RDW 15.8; MPV 7.5. 06/08 01:00 Order name: LFT's; Complete Time: 02:47 06/08 02:48 Interpretation: Normal except: AST 12; IBILI, CALC 0.1; ALB 2.6; GLOB 4.0; A/G 0.7. 06/08 01:00 Order name: Magnesium; Complete Time: 02:47 06/08 02:48 Interpretation: Reviewed. 06/08 01:00 Order name: NT PRO-BNP; Complete Time: 02:47 06/08 02:48 Interpretation: Abnormal: NT PRO-BNP 1118. 06/08 01:00 Order name: PT-INR; Complete Time: 02:19 06/08 02:48 Interpretation: Reviewed. 06/08 01:00 Order name: Troponin HS; Complete Time: 02:47 06/08 01:00 Order name: Ptt, Activated; Complete Time: 02:19 06/08 01:00 Order name: Type And Screen 06/08 01:00 Order name: UA Rfx Mihir Cult if indicated; Complete Time: 05:48 06/08 05:48 Interpretation: Reviewed. 06/08 03:11 Order name: Packed RBC Leukored [facility] 06/08 06:51 Order name: CBC with Automated Diff EDTN 06/08 06:51 Order name: CBC with Automated Diff EDTN 06/08 06:51 Order name: CBC with Automated Diff EDTN 06/08 06:51 Order name: CBC with Automated Diff EDTN 06/08 06:51 Order name: Comprehensive Metabolic Panel [facility] 06/08 06:51 Order name: Comprehensive Metabolic Panel [facility] 06/08 06:51 Order name: Comprehensive Metabolic Panel [facility] 06/08 06:51 Order name: Comprehensive Metabolic Panel [facility] 06/08 07:18 Order name: Hematocrit [facility] 06/08 07:18 Order name: Hemoglobin [facility] 06/08 07:18 Order name: Hemoglobin [facility] 06/08 07:19 Order name: Lactate w/ 2H reflex if indic.; Complete Time: 12:25 [facility] 06/08 02:20 Order name: XRAY Chest (1 view) 06/08 05:48 Interpretation: Report review. 06/08 02:57 Order name: CT Abd/Pelvis - IV Contrast Only 06/08 01:00 Order name: EKG; Complete Time: 01:01 06/08 01:00 Order name: Cardiac monitoring; Complete Time: 02:11 06/08 01:00 Order name: EKG - Nurse/Tech; Complete Time: 02:11 06/08 01:00 Order name: IV Saline Lock; Complete Time: 07:19 06/08 01:00 Order name: Labs collected and sent 06/08 01:00 Order name: O2 Per Protocol; Complete Time: 07:19 06/08 01:00 Order name: O2 Sat Monitoring; Complete Time: 07:19 cp EC:05 Rate is 61 beats/min. Rhythm is regular. IL interval is normal. QRS interval is cp prolonged at 164 msec. QT interval is prolonged at 526 msec. T waves are Inverted in leads I, aVL, aVR. Interpreted by me. Reviewed by me. Administered Medications: 06:25 Drug: Pantoprazole IVP 40 mg IVP once Route: IVP; Site: left antecubital; [facility] 06:52 Follow up: Response: No adverse reaction [facility] 06:25 Drug: Pantoprazole IV 8 mg/hr IV at 25 ml/hr continuous; (Standard dilution is 80 mg in 12 250 mL NS) Route: IV; Rate: 25 ml/hr; Site: left antecubital; Disposition Summary: 06/08/25 06:22 Hospitalization Ordered Notes: Hospitalization Status: Inpatient Admission cp Condition: Stable cp Problem: new cp Symptoms: have improved cp Bed/Room Type: Standard cp Provider: Alessandra Gomez(06/08/25 06:43) la1 Location: Telemetry/MedSurg (Inpatient)(06/08/25 11:39) iw Room Assignment: 212(06/08/25 11:39) iw Diagnosis - Anemia, unspecified cp Forms: - Medication Reconciliation Form cp - SBAR form cp - Leadership Thank You Letter cp Addendum: 06/15/2025 07:35 Co-signature as Attending Physician, Ronny Nicole MD I agree with the assessment and c thomason plan of care. Signatures: Dispatcher [employer] Ronny Yeboah MD MD cha Williams, Irene, RN RN iw Clay Zuleta, APPRENTICE ELECTRICIAN-C APPRENTICE ELECTRICIAN-Cla1 Ronny Keenan PA PA cp Joan Mcelroy MD MD sp3 Tiffani Dumont RN RN vc1 Tea Metcalf RN RN ss12 Corrections: (The following items were deleted from the chart) 06/08 01:01 01:01 BASIC METABOLIC PANEL+C.LAB.BRZ ordered. EDMS EDMS 01:01 01:01 CBC+H.LAB.BRZ ordered. EDMS EDMS 01:01 01:01 HEPATIC FUNCTION+C.LAB.BRZ ordered. EDMS EDMS 01:01 01:01 MAGNESIUM+C.LAB.BRZ ordered. EDMS EDMS 01:01 01:01 PROBNP+C.LAB.BRZ ordered. EDMS EDMS 01:01 01:01 PROTIME (+INR)+COAG.LAB.BRZ ordered. EDMS EDMS 01:01 01:01 Troponin High Sensitivity+C.LAB.BRZ ordered. EDMS EDMS 01:01 01:01 PTT, ACTIVATED+COAG.LAB.BRZ ordered. EDMS EDMS 01:01 01:01 TYPE AND SCREEN+BB.LAB.BRZ ordered. EDMS EDMS 01:01 01:01 UA Rfx Mihir Cult if indicated+U.LAB.BRZ ordered. EDMS EDMS 06:27 06:22 Telemetry/MedSurg (Inpatient) cp vc1 06:27 06:22 cp vc1 06:43 06:22 Clay Zuleta cp la1 11:39 06:27 [facility] ER HOLD vc1 iw 11:39 06:27 ERHOLD- vc1 iw
[2025-06-08] MEDS: PANTOPRAZOLE INJ 80 MG in NA CHLORIDE 0.9% 250 ML IV SCH (06:30)
[2025-06-08] MEDS ORDERED: PANTOPRAZOLE 40 MG INJ ONE ×2 (06:39→06:40)
[2025-06-08] MEDS ORDERED: NA CHLORIDE 0.9% 250 ML ONE (06:40)
[2025-06-08] MEDS ORDERED: ONDANSETRON 4 MG/2 ML VIAL IV PRN (06:46)
[2025-06-08] MEDS ORDERED: MORPHINE 2 MG/ML SYR IV PRN (06:46)
--- NOTE | 2025-06-08 06:57 | RAD REPORT ---
CLINICAL HISTORY: ABD PAIN COMPARISON: None. TECHNIQUE: CT ABDOMEN PELVIS WITH IV CONTRAST on 06/08/2025 2:57 AM CDT This exam was performed according to our departmental dose-optimization program, which includes autom ated exposure control, adjustment of the mA and/or kV according to patient size and/or use of iterative reconstruction technique. FINDINGS: Lower lungs are clear. Abdomen: The liver is normal in appearance. There is no biliary dilatation. Cholecystectomy was perfo rmed. The pancreas and spleen are normal in appearance. Adrenal glands are normal. Right kidney is mildly atrophic. Abdominal aorta is heavily calcified without aneurysm. There is no free air. There is no retroperiton eal adenopathy. Pelvis: There is moderate diverticulosis of the distal colon. Urinary bladder is unremarkable. There is no free fluid. Hysterectomy was performed. Appendix is not clearly seen. Skeleton: There are no acute osseous findings. No suspicious bony lesions. IMPRESSION: No definite acute process. Electronically signed by: Jason Sahu MD 06/08/2025 06:34 AM CDT RP Due to temporary technical issues with the PACS[employer] reporting system, reports are being orville d by the in-house radiologist without review as a courtesy to ensure prompt reporting the interpreting radiologist is fully responsible for the content of the report. Transcribed Date/Time: 06/08/2025 6:56 AM
[2025-06-08] MEDS: NA CHLORIDE 0.9% 1,000 ML IV SCH (07:00)
--- NOTE | 2025-06-08 07:17 | P.HP ---
Patient History Date of Service: 06/08/25 History of Present Illness: 89-year-old female with a past medical history of hypertension, CAD, hyperlipidemia, chronic kidney disease, hypothyroidism, pacemaker status, status post TAVR presenting with abdominal pain in the upper right side and nausea for the last 2 weeks. She is seen resting in the ED getting blood through the IV. Her daughter is at bedside and relates majority of the history. She is a resident of [facility] and was found to have low hemoglobin on her blood counts. Allergies clavulanic acid Allergy (Verified 08/21/24 00:10) Itching gabapentin Allergy (Verified 08/21/24 00:10) Itching naproxen Allergy (Verified 08/21/24 00:10) Itching Penicillins Allergy (Verified 08/21/24 00:10) Itching phenytoin Allergy (Verified 08/21/24 00:10) Itching piroxicam Allergy (Verified 08/21/24 00:10) Itching shrimp Adverse Reaction (Mild, Verified 08/21/24 00:10) Itching Home Medications: Aspirin Chewable [Aspirin Chewable*] 81 mg PO DAILY 08/21/24 Fluticasone [Flonase 50MCG Nasal [place]*] 1 spray JENNA DAILY 08/21/24 Furosemide [Lasix*] 20 mg PO DAILY 08/21/24 Levothyroxine Sodium 137 mcg PO 0630 08/21/24 Memantine HCl [Namenda*] 10 mg PO DAILY 08/21/24 Rosuvastatin [Crestor*] 5 mg PO BEDTIME 08/21/24 Donepezil HCl [Aricept] 10 mg PO BID 03/17/25 Escitalopram Oxalate [Lexapro] 1 tab PO DAILY 03/17/25 Fexofenadine/Pseudoephedrine [Fela-D 24 Hour Tablet] 10 mg PO DAILY 03/17/25 Silver Sulfadiazine Crm [Silvadene*] 1 appl TOP BID 30 Days #1 tube 03/25/25 Apixaban [Eliquis] 5 mg PO BID #60 04/04/25 Baclofen [Lioresal*] 5 mg PO BEDTIME #30 tab 04/04/25 Lidocaine 4% Patch [Lidoderm 5% Patch*] 1 patch TOP DAILY pat 04/04/25 Magnesium Carb,Citrate,Oxide [Magnesium Complex] 300 mg PO BID #60 04/04/25 - Past Medical/Surgical History Diabetic: No -: HTN -: HLD -: Dementia -: hypothyroidsm -: nonrheumatic mitral valve stenosis -: TIA -: Reflux -: CAD LAD 60% stenosis -: CVA/TIA -: CVA/TIA -: aaliyah knee sx -: TAVR 08/16/24 -: Pacemaker 08/17/24 -: Thyroidectomy - Family History Mother -: Cancer, Other (see notes) Notes: Hodgkins disease Father -: Other (see notes) Notes: from complications of surgery - Social History Alcohol use: No CD- Drugs: No Caffeine use: No Review of Systems 10-point ROS is otherwise unremarkable General: Weakness Eyes: Unremarkable ENT: Unremarkable Respiratory: Unremarkable Cardiovascular: Unremarkable Gastrointestinal: Abdominal Pain Genitourinary: Unremarkable Musculoskeletal: Unremarkable Integumentary: Unremarkable Physical Examination - Physical Exam General: Alert, Obese HEENT: Normocephalic Neck: Supple Respiratory: Clear to auscultation bilaterally Cardiovascular: Edema Capillary refill: <2 Seconds Gastrointestinal: Normal bowel sounds Musculoskeletal: No clubbing Integumentary: No erythema - Studies Laboratory Data (last 24 hrs) 06/08/25 06/08/25 06/08/25 01:29 01:29 01:29 WBC 9.10 Hgb 6.1 L Hct 19.5 L Plt Count 368 PT 18.1 H INR 1.62 APTT 31.8 Sodium 142 Potassium 4.2 BUN 27 H Creatinine 1.22 H Glucose 103 Magnesium 2.5 H Total Bilirubin 0.3 AST 12 L ALT < 14 Alkaline Phosphatase 85 Assessment and Plan - Plan GI bleed Hypertension Dyslipidemia Dementia Hypothyroidism Mitral valve stenosis CAD History of TAVR Admit to floor Type and crossmatch, 2 units PRBC ordered in the ED CT abdomen pelvis pending Start fluids low rate, start Protonix drip, Zofran IV as needed Will consult gastroenterology, Dr Curt Placed on employer relations representative vital signs Serial H&H every 6 hour Obtain LFTs and lactate PT, INR Continue home meds once able to swallow or cleared by GI fall precautions continue lexapro continue crestor continue memantine and aricept DVT ppx with SCDs - Advance Directives Does patient have a Living Will: No Does patient have a Durable POA for Healthcare: No
[2025-06-08] MEDS ORDERED: NA CHLORIDE 0.9% 500 ML ONE ×2 (09:05→12:19)
[2025-06-08] MEDS ORDERED: NA CHLORIDE 0.9% 1,000 ML ONE (09:05)
[2025-06-08 10:56] VITALS: BMI 39.4
[2025-06-08] MEDS: EPINEPHRINE 1 MG/ML VIAL ONE (12:36)
[2025-06-08] MEDS: MAGNESIUM CITRATE 300 ML BOT PO ONE ×2 (13:00→20:45)
[2025-06-08] MEDS ORDERED: ETOMIDATE 20 MG/10 ML VIAL IV ONE (13:00)
[2025-06-08] MEDS ORDERED: LIDOCAINE 1% MPF 5 ML VIAL ONE (13:00)
[2025-06-08] MEDS: GOLYTELY 4000 ML PO ONE ×2 (13:00→20:45)
[2025-06-08 19:49] LABS: Hematocrit 21.4 % (36.0-45.0); Hemoglobin 6.9 g/dL (12.0-15.0)
[2025-06-08] MEDS: DONEPEZIL HCL 5 MG TAB PO SCH (20:23)
[2025-06-08] MEDS: ROSUVASTATIN 5 MG TAB PO SCH (20:24)
[2025-06-08] MEDS: FUROSEMIDE 20 MG/ 2ML VIAL IV ONE (21:20)
[2025-06-09 02:55] LABS: Albumin 2.6 g/dL (3.4-5.0); Albumin/Globulin Ratio 0.7 (1.1-1.8); Alkaline Phosphatase 73 U/L (45-117); Anion Gap 7.4 mEq/L (5.0-15.0); BUN Blood Urea Nitrogen 17 mg/dL (7-18); Globulin 3.5 g/dL (2.3-3.5); Glucose Level 85 mg/dL (74-106); Potassium 3.4 mEq/L (3.5-5.1)
[2025-06-09 02:58] LABS: Absolute Lymphocytes (CBC) 0.8 K/uL (0.7-4.9); Hematocrit 24.9 % (36.0-45.0); Hemoglobin 8.3 g/dL (12.0-15.0); MCH 26.2 pg (27.0-35.0); MCHC 33.2 g/dL (32.0-36.0); MCV 79.1 fL (80-100); MPV 7.2 fL (7.6-11.3); Nucleated RBC Absolute Count 0.0 (0-0); Nucleated Red Blood Cells % 0.1 % (0-0); RBC Red Blood Cell Count 3.15 M/uL (3.86-4.86); White Blood Count 12.80 thou/uL (4.3-10.9)
[2025-06-09 03:02] LABS: AST/SGOT < 10 U/L (15-37)
[2025-06-09 03:03] LABS: ALT/SGPT < 14 U/L (13-56)
[2025-06-09] MEDS: KCL 20 MEQ/100 mL IVPB 20 MEQ/100 ML BAG IV SCH (05:00)
[2025-06-09] MEDS: LEVOTHYROXINE SOD 0.112 MG TAB PO SCH (06:24)
[2025-06-09] MEDS: LEVOTHYROXINE SOD 0.025 MG TAB PO SCH (06:24)
[2025-06-09] MEDS ORDERED: HOME MED 1 EA UNK (Levothyroxine Sodium [Levothyroxine Sodium] 137 MCG Tablet) PO SCH (06:30)
[2025-06-09] MEDS: MEMANTINE HCL 10 MG TABLET PO SCH (09:00)
[2025-06-09] MEDS: ESCITALOPRAM OXALATE 10 MG TABLET PO SCH (09:00)
[2025-06-09] MEDS ORDERED: ACETAMINOPHEN 325 MG TABLET PO PRN (12:06)
--- NOTE | 2025-06-09 12:14 | P.PN ---
Subjective Date of Service: 06/09/25 Subjective: Other (Patient is status post EGD. She is having right upper quadrant pain. Her WBC is going up. She has a history of cholecystectomy.) Physical Examination - Vital Signs Temperature: 98.1 F Blood Pressure: 139/62 Pulse: 67 Respirations: 18 Pulse Ox (%): 95 - Physical Exam General: Acute distress, Obese HEENT: Atraumatic, Normocephalic Respiratory: Clear to auscultation bilaterally, Normal air movement Cardiovascular: No edema, Normal pulses, Regular rate/rhythm, Normal S1 S2 Neurological: Normal speech Assessment And Plan - Plan Assessment Patient is a 89-year-old female with a past medical history of hypertension, hyperlipidemia, hypothyroidism and aortic stenosis status post TAVR. She was admitted after she presented with abdominal pain. She was found to have a hemoglobin of 6.1 upon arrival. She has responded well to 2 units of packed RBC. EGD was done on 06/08. Pending endoscopic findings. GI bleed Leukocytosis Hypertension Dyslipidemia Dementia Hypothyroidism Mitral valve stenosis CAD History of TAVR PLAN: CT A/P without acute process Continue Protonix drip, Zofran IV as needed I will discussed EGD findings with Dr. Gomez from GI Monitor WBC Continue routine home medications DVT ppx with SCDs
[2025-06-09] MEDS: LIDOCAINE 4% PATCH TOP SCH (13:00)
[2025-06-09] MEDS ORDERED: ETOMIDATE 20 MG/10 ML VIAL IV ONE (13:22)
[2025-06-09] MEDS ORDERED: LIDOCAINE 2% MPF 5 ML VIAL ONE (13:22)
[2025-06-09] MEDS ORDERED: EPINEPHRINE 1 MG/ML VIAL ONE (13:49)
[2025-06-09] MEDS ORDERED: SODIUM CHLORIDE 0.9% 10ML INJ IV PRN (17:42)
--- NOTE | 2025-06-09 20:09 | CON ---
Date of Consultation: 06/09/2025 Reason For Consultation: Anemia hemoglobin down to 6 and right upper quadrant pain. 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 The patient presented to hospital after having blood count checked and found to have a hemogl obin down to 6.0, MCV of 76. She has also noted some right upper quadrant pain associated with nause a for the past couple of weeks as per daughter and the medical chart. She is a resident of [facility]. Past Medical History: Significant for hypertension, hypothyroidism, hyperlipidemia, chronic kidney d isease, coronary artery disease, status post complete heart block with AVR surgery and pacemaker plac ement, bilateral total knee replacements and hysterectomy. Medications: Include aspirin, Flonase, Lasix, levothyroxine, Namenda, Crestor, Aricept, Lexapro, All egra, Silvadene, Eliquis, baclofen, lidocaine, magnesium. Allergies: TO AUGMENTIN, GABAPENTIN, NAPROXEN, PENICILLIN, PHENYTOIN, PIROXICAM, AND SHRIMP. Social History: She is a . Four daughters. No tobacco, quit around 1979. Occasional alcohol. Family History: Father of congestive heart failure and also complications from surge ry. Mother had Hodgkin lymphoma. Review of Systems: The patient has some right upper quadrant pain, nausea for a couple weeks. Physical Examination: Measurements: The patient is 5 feet 6 inch, 244 pounds, BMI of 39 kg/m2. Vital Signs: Temperature 97.8 degrees Fahrenheit, pulse 64, respirations 15, blood pressure 137/52, O2 saturation 96% to 100%. General: She is obese, elderly female, lying in bed, in no acute distress. Some dementia, unable to remember well. HEENT: Normocephalic, atraumatic. Anicteric. Pupils equal, round, and reactive to light. Extraocu lar movements are intact. Oropharynx is clear. Neck: Supple. No masses. Respirations: Clear to auscultation bilaterally. Cardiac: Regular rate and rhythm. Gastrointestinal: Positive bowel sounds. Soft with some mild tenderness in right upper quadrant. N o peritoneal Carson sign. No rebound. Extremities: No clubbing, cyanosis. There is some mild lower extremity edema. Neurologic: Alert and oriented x2. Some dementia evident. Able to move all extremities. Laboratory Data: The patient has a white count of 12.8, up from 9.1 yesterday; hemoglobin of 6.1 yes terday, now up to 8.3 with transfusions. MCV yesterday was 76 and platelet count 317, polys of 84%, lymphocytes 7%, monocytes 6%, eosinophils 3%. PT of 18.1, INR of 1.62, PTT of 31.8. The patient has a sodium 146, potassium 3.4, chloride 113, bicarb 29, BUN 17, creatinine of 0.92, glucose of 85, lac tic acid of 1.2, calcium 7.2, total bilirubin 0.9, AST of less than 10, ALT of less than 14, alkaline phosphatase 73. Troponin I of 15.5. B type natriuretic peptide of 1118, total protein 6.1, albumin 2.6. Lipase pending. UA; 25 leukocyte esterase, otherwise negative. No acute abnormality seen. Radiological Data: Chest x-ray; bilateral thickening represent pulmonary edema, enlarged cardiac silhouette, possible congestive heart failure consistent with B-type natriuretic p eptide of 1118. Impression: 1. Anemia. Hemoglobin down to 6.1, MCV of 76. We will investigate with EGD/colonoscopy. 2. Right upper quadrant pain with nausea times 1 to 2 weeks passed per the patient and chart review. 3. History of hyperlipidemia, hypothyroidism, chronic kidney disease, coronary artery disease, status post complete heart block with aortic valve replacement surgery and pacemaker placement, bilateral t otal knee replacements and hysterectomy. Recommendations: 1. Continue resuscitation, IV fluids, serial H and H, and then transfuse p.r.n. 2. Proceed with colonoscopy/EGD. OMAYRA/MANA Voice ID: [id number] Report ID: [id number]
[2025-06-09] MEDS: PANTOPRAZOLE 40 MG INJ IVP SCH (20:33)
[2025-06-09] MEDS: ATORVASTATIN 10 MG TAB PO SCH (20:33)
[2025-06-09] MEDS: MAGNESIUM OXIDE 400 MG TAB PO SCH (20:33)
[2025-06-09] MEDS: METHYLPREDNISOLONE 125 MG INJ IV ONE (21:13)
[2025-06-10] MEDS: ALBUTEROL 2.5 MG/3 ML NEB SOL NEB SCH (00:08)
[2025-06-10] MEDS: IPRATROPIUM BROM 0.5MG/2.5ML NEB SCH (00:08)
--- NOTE | 2025-06-10 03:43 | RAD REPORT ---
EXAM DESCRIPTION: CT CHEST ANGIOGRAPHY WITH IV CONTRAST 06/10/2025 3:17 AM CDT CLINICAL HISTORY: 89 years, Female, SOB, elevated D dimer. COMPARISON: XR Chest 06/08/2025. TECHNIQUE: Multiple transaxial tomograms of the chest were obtained from the lung apices through the lung bases after the administration of large bolus of IV contrast for complete opacification of the pulmonary arteries. Subsequent to 2-D and 3-D multiplanar reformats and maximum intensity projection images were generate d in the sagittal and coronal planes. An individualized dose optimization technique, Automated Exposure Control, was utilized for the perfo rmed procedure. CONTRAST: Intravenous contrast was administered. FINDINGS: Several of the images are comprised by breathing motion artifact limiting diagnostic value. Neck base: Visualized thyroid gland and soft tissues are normal. No adenopathy. CTA: Diagnostic quality: Adequate for assessment of the subsegmental pulmonary arteries. The pulmonary arteries are adequately opacified. No evidence of pulmonary emboli or right heart strain. No acute finding in the thoracic aorta. CHEST: Lungs: The lung parenchyma demonstrate compressive atelectatic changes posterior segment bilateral lo wer lobes. There is prominence of the pulmonary markings for which the possibility of early interstitial pulmonary edema could be of consideration. Airways: The trachea mainstem bronchus demonstrate to be within normal limits. Pleura: Small trace of the bilateral pleural effusions along the posterior CP angles. The diaphragms are well positioned. There is no evidence for pneumothorax. Mediastinum and anamaria: There is no significant mediastinal and/or hilar lymphadenopathy. The axillary regions demonstrate to be clear. Heart: Moderate enlarged. There is minimal mitral annular opacification. No pericardial thickening or effusion. There is a dual-lead pacemaker via left subclavian Vessels: Coronary: Moderate coronary calcification. Aorta: There is mild intimal aortic arch calcification. There is no evidence for aneurysm. There i s a metallic stent within the aortic valve corresponding to transaortic valvular repair Other: There are dilated main pulmonary artery suggesting pulmonary hypertension. Osseous structures: The thoracic spine demonstrate to be demineralized. No evidence for compression d eformities and/or significant skeletal lesions. Minimal anterior spondylosis mid/lower thoracic spine. There is significant degenerative changes right glenohumeral joint Musculoskeletal: No soft tissue and/or musculoskeletal abnormality. Visualized upper abdomen: The visualized portions of the upper abdomen demonstrate fatty infiltration of the liver. Status post cholecystectomy.. IMPRESSION: No evidence of pulmonary embolism and/or right heart strain. Cardiomegaly with prominence of the pulmonary markings for which the possibility of early interstitia l pulmonary edema could be of consideration. Small trace of the bilateral pleural effusions along the posterior CP angles. Dilated main pulmonary artery suggesting pulmonary hypertension. Fatty infiltration of the liver. Status post cholecystectomy. Electronically signed by: Juan Velásquez MD 06/10/2025 03:38 AM CDT RP Due to temporary technical issues with the PACS/[employer] reporting system, reports are being orville d by the in-house radiologist without review as a courtesy to ensure prompt reporting the interpreting radiologist is fully responsible for the content of the report. Transcribed Date/Time: 06/10/2025 3:43 AM
[2025-06-10 07:03] LABS: Absolute Lymphocytes (CBC) 0.5 K/uL (0.7-4.9); Hematocrit 26.5 % (36.0-45.0); Hemoglobin 8.5 g/dL (12.0-15.0); MCH 25.4 pg (27.0-35.0); MCHC 32.2 g/dL (32.0-36.0); MCV 79.1 fL (80-100); MPV 7.5 fL (7.6-11.3); Nucleated RBC Absolute Count 0.0 (0-0); Nucleated Red Blood Cells % 0.0 % (0-0); RBC Red Blood Cell Count 3.35 M/uL (3.86-4.86); White Blood Count 27.60 thou/uL (4.3-10.9)
[2025-06-10 07:28] LABS: AST/SGOT 17 U/L (15-37); Albumin 2.6 g/dL (3.4-5.0); Albumin/Globulin Ratio 0.7 (1.1-1.8); Alkaline Phosphatase 79 U/L (45-117); Anion Gap 12.3 mEq/L (5.0-15.0); BUN Blood Urea Nitrogen 20 mg/dL (7-18); Globulin 3.8 g/dL (2.3-3.5); Glucose Level 174 mg/dL (74-106); Potassium 4.3 mEq/L (3.5-5.1)
[2025-06-10 07:37] LABS: ALT/SGPT < 14 U/L (13-56)
[2025-06-10] MEDS ORDERED: MULTIVIT MINERALS PO SCH (09:00)
[2025-06-10] MEDS ORDERED: LIDOCAINE 4% PATCH TOP SCH (09:00)
[2025-06-10] MEDS ORDERED: FOLIC ACID 0.8 MG PO SCH (09:00)
[2025-06-10] MEDS ORDERED: [UNRECOGNIZED DRUG - OTHER] PO SCH (09:00)
[2025-06-10] MEDS: [UNRECOGNIZED DRUG - OTHER] PO SCH (09:00)
[2025-06-10] MEDS ORDERED: HOME MED 1 EA UNK (Cholecalciferol (Vitamin D3) [Vitamin D3] 50 MCG Capsule) PO SCH (09:00)
[2025-06-10] MEDS: ECHINACEA 380 MG PO SCH (09:00)
[2025-06-10] MEDS ORDERED: HOME MED 1 EA UNK (Omega-3 Fatty Acids [Omega-3] 1,000 MG Capsule) PO SCH (09:00)
[2025-06-10] MEDS ORDERED: FOLIC ACID PO SCH (09:00)
[2025-06-10] MEDS: CYANOCOBALAMIN 1,000 MCG TAB PO SCH (09:11)
[2025-06-10] MEDS: FOLIC ACID 1 MG TABLET PO SCH (09:11)
[2025-06-10] MEDS: ASCORBIC ACID 500 MG TABLET PO SCH (09:11)
[2025-06-10] MEDS: DOCUSATE NA 100 MG CAP PO SCH (09:12)
[2025-06-10] MEDS: Multi-VIT(Centravite Senior) 1 TAB TAB PO SCH (09:12)
[2025-06-10] MEDS: DOCOSAHEXANOIC AC/EPA 1000 MG PO SCH (09:15)
[2025-06-10] MEDS: VITAMIN D 1000 UNIT TAB PO SCH (09:20)
[2025-06-10 11:42] LABS: Differential Total Cells Count 100; Segmented Neutrophils 95 % (40-80)
[2025-06-10 11:43] LABS: ACANTHOCYTE FEW; Blood Morphology Comment NOTED (NOT SEEN); Ovalocytes SLIGHT
--- NOTE | 2025-06-10 18:34 | P.PN ---
Subjective Date of Service: 06/10/25 Chief Complaint: Anemia Subjective: New changes (Hgb increasing from 8.3 to 8.5 overnight. WBC increasing. EGD with pyloric channel ulcer, on PPI therapy. She states she feels well, sitting in chair eating dinner.) Review of Systems 10-point ROS is otherwise unremarkable General: Weakness (Improved. ) Physical Examination - Vital Signs Temperature: 98.1 F Blood Pressure: 119/48 Pulse: 69 Respirations: 18 Pulse Ox (%): 98 - Physical Exam General: Alert, In no apparent distress, Oriented x3, Cooperative HEENT: Atraumatic, Normocephalic, PERRLA, EOMI Neck: Supple Respiratory: Normal air movement Cardiovascular: Normal pulses Gastrointestinal: Soft and benign, No tenderness, No rebound, No guarding, Other (obese) Neurological: Normal speech Assessment And Plan - Current Problems (Diagnosis) (1) Anemia Current Visit: Yes Status: Acute (2) Pyloric channel ulcer Current Visit: Yes Status: Acute - Plan REC: 1) continue PPI therapy 2) serial H&Hs and transfuse prn 3) CXR and U/A 4) await wound culture 5) consider antibiotics
[2025-06-11] MEDS: DIPHENHYDRAMINE 25 MG TAB/CAP PO ONE ×2 (00:08→22:30)
[2025-06-11 06:18] LABS: Absolute Lymphocytes (CBC) 1.5 K/uL (0.7-4.9); Hematocrit 25.9 % (36.0-45.0); Hemoglobin 8.1 g/dL (12.0-15.0); MCH 24.7 pg (27.0-35.0); MCHC 31.3 g/dL (32.0-36.0); MCV 79.1 fL (80-100); MPV 7.5 fL (7.6-11.3); Nucleated RBC Absolute Count 0.0 (0-0); Nucleated Red Blood Cells % 0.0 % (0-0); RBC Red Blood Cell Count 3.27 M/uL (3.86-4.86); White Blood Count 20.90 thou/uL (4.3-10.9)
[2025-06-11 06:50] LABS: AST/SGOT 18 U/L (15-37); Albumin 2.6 g/dL (3.4-5.0); Albumin/Globulin Ratio 0.7 (1.1-1.8); Alkaline Phosphatase 74 U/L (45-117); Anion Gap 8.7 mEq/L (5.0-15.0); BUN Blood Urea Nitrogen 31 mg/dL (7-18); Globulin 3.8 g/dL (2.3-3.5); Glucose Level 104 mg/dL (74-106); Potassium 3.7 mEq/L (3.5-5.1)
[2025-06-11 06:58] LABS: ALT/SGPT < 14 U/L (13-56)
[2025-06-11 10:26] LABS: Differential Total Cells Count 100
[2025-06-11 10:27] LABS: Anisocytosis 1+; Blood Morphology Comment NOTED (NOT SEEN); Segmented Neutrophils 79 % (40-80); White Blood Cell Scan OK (OK)
[2025-06-11 10:28] LABS: Hypochromasia 1+
[2025-06-11] MEDS: CEFTRIAXONE 1,000 MG in NA CHLORIDE 0.9% 50 ML IVPB ONE (14:37)
[2025-06-12 01:11] LABS: Absolute Lymphocytes (CBC) 1.5 K/uL (0.7-4.9); Hematocrit 27.0 % (36.0-45.0); Hemoglobin 8.6 g/dL (12.0-15.0); MCH 25.1 pg (27.0-35.0); MCHC 31.8 g/dL (32.0-36.0); MCV 78.7 fL (80-100); MPV 7.3 fL (7.6-11.3); Nucleated RBC Absolute Count 0.0 (0-0); Nucleated Red Blood Cells % 0.1 % (0-0); RBC Red Blood Cell Count 3.43 M/uL (3.86-4.86); White Blood Count 16.10 thou/uL (4.3-10.9)
[2025-06-12 06:31] LABS: Absolute Lymphocytes (CBC) 1.1 K/uL (0.7-4.9); Hematocrit 25.8 % (36.0-45.0); Hemoglobin 8.1 g/dL (12.0-15.0); MCH 25.0 pg (27.0-35.0); MCHC 31.5 g/dL (32.0-36.0); MCV 79.3 fL (80-100); MPV 7.4 fL (7.6-11.3); Nucleated RBC Absolute Count 0.0 (0-0); Nucleated Red Blood Cells % 0.0 % (0-0); RBC Red Blood Cell Count 3.26 M/uL (3.86-4.86); White Blood Count 17.10 thou/uL (4.3-10.9)
[2025-06-13 12:11] LABS: Absolute Lymphocytes (CBC) 0.8 K/uL (0.7-4.9); Hematocrit 25.7 % (36.0-45.0); Hemoglobin 8.3 g/dL (12.0-15.0); MCH 25.6 pg (27.0-35.0); MCHC 32.3 g/dL (32.0-36.0); MCV 79.5 fL (80-100); MPV 7.1 fL (7.6-11.3); Nucleated RBC Absolute Count 0.0 (0-0); Nucleated Red Blood Cells % 0.1 % (0-0); RBC Red Blood Cell Count 3.23 M/uL (3.86-4.86); White Blood Count 8.00 thou/uL (4.3-10.9)
[2025-06-13 12:29] LABS: AST/SGOT 12 U/L (15-37); Albumin 2.5 g/dL (3.4-5.0); Albumin/Globulin Ratio 0.7 (1.1-1.8); Alkaline Phosphatase 70 U/L (45-117); Anion Gap 6.6 mEq/L (5.0-15.0); BUN Blood Urea Nitrogen 22 mg/dL (7-18); Globulin 3.8 g/dL (2.3-3.5); Glucose Level 105 mg/dL (74-106); Potassium 4.6 mEq/L (3.5-5.1)
[2025-06-13 12:31] LABS: ALT/SGPT < 14 U/L (13-56)
--- NOTE | 2025-06-14 03:23 | P.PN ---
Subjective Date of Service: 06/17/25 Chief Complaint: Anemia Physical Examination - Vital Signs Temperature: 97.8 F Blood Pressure: 162/76 Pulse: 64 Respirations: 18 Pulse Ox (%): 97 Assessment & Plan - Advance Directives Does patient have a Living Will: Yes Does patient have a Durable POA for Healthcare: No
--- NOTE | 2025-06-14 11:04 | P.CNS ---
Date of Consult: 06/14/25 Chief Complaint: Anemia History of Present Illness: Patient with PMH of AGNIESZKA, Heart block s/p PM, presented with weakness, found to have anemia, gastric ulcer s/p clip, patient denies having any chest pain, breathing has been stable, she is off oxygen. Allergies clavulanic acid Allergy (Verified 08/21/24 00:10) Itching gabapentin Allergy (Verified 08/21/24 00:10) Itching naproxen Allergy (Verified 08/21/24 00:10) Itching Penicillins Allergy (Verified 08/21/24 00:10) Itching phenytoin Allergy (Verified 08/21/24 00:10) Itching piroxicam Allergy (Verified 08/21/24 00:10) Itching shrimp Adverse Reaction (Mild, Verified 08/21/24 00:10) Itching Home medications list reviewed: Yes Home Medications: Aspirin Chewable [Aspirin Chewable*] 81 mg PO DAILY 08/21/24 Fluticasone [Flonase 50MCG Nasal Portia*] 1 spray JENNA DAILY 08/21/24 Furosemide [Lasix*] 20 mg PO DAILY 08/21/24 Levothyroxine Sodium 137 mcg PO 0630 08/21/24 Memantine HCl [Namenda*] 10 mg PO DAILY 08/21/24 Donepezil HCl [Aricept] 10 mg PO BID 03/17/25 Apixaban [Eliquis] 5 mg PO BID #60 04/04/25 Baclofen [Lioresal*] 5 mg PO BEDTIME #30 tab 04/04/25 Lidocaine 4% Patch [Lidoderm 5% Patch*] 1 patch TOP DAILY pat 04/04/25 Acetaminophen [Tylenol] 650 mg PO Q6HP PRN 06/08/25 Ascorbic Acid [Vitamin C] 500 mg PO DAILY 06/08/25 Atorvastatin Calcium [Lipitor] 10 mg PO BEDTIME 06/08/25 Bifidobacterium Longum [Align] 1 each PO DAILY 06/08/25 Cholecalciferol (Vitamin D3) [Vitamin D3] 50 mcg PO DAILY 06/08/25 Cyanocobalamin [Vitamin B-12] 1,000 mcg PO DAILY 06/08/25 Docusate Sodium 100 mg PO DAILY 06/08/25 Echinacea 760 mg PO DAILY 06/08/25 Folic Acid 0.8 mg PO DAILY 06/08/25 Magnesium Oxide [Mag 0X Tab] 400 mg PO BID 06/08/25 Multivit-Minerals/Folic Acid [Multivitamin-Mineral Gummy] 1 ea PO DAILY 06/08/25 [place]-3 Fatty Acids [[place]-3] 1,000 mg PO DAILY 06/08/25 Ondansetron HCl 4 mg PO Q8HP PRN 06/08/25 Lisinopril/Hydrochlorothiazide [Lisinopril-Hctz 20-12.5 mg Tab] 1 tab PO DAILY 06/13/25 - Past Medical/Surgical History Diabetic: No -: HTN -: HLD -: Dementia -: hypothyroidsm -: nonrheumatic mitral valve stenosis -: TIA -: Reflux -: CAD LAD 60% stenosis -: CVA/TIA -: CVA/TIA -: aaliyah knee sx -: 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 moist/pink, EOMI, Sclerae nonicteric Neck: Supple, 2+ carotid pulse no bruit, No LAD, Without JVD or thyroid abnormality Respiratory: Clear to auscultation bilaterally, Normal air movement Cardiovascular: Regular rate/rhythm, Normal S1 S2 Gastrointestinal: Normal bowel sounds, No tenderness Musculoskeletal: No tenderness Integumentary: No rashes Neurological: Normal gait, Normal speech, Normal tone, Normal affect Lymphatics: No axilla or inguinal lymphadenopathy - Problems (1) Atrial arrhythmia Current Visit: Yes Status: Acute Plan: questionable run of atrial arrhythmia few days ago, ther was concern for AF, reviewed tele and can not recognize that. Patient with recent Gastric ulcer GI bleed so anticoagulation is challenging, she got history of TIA need to have PM device check for better answer Nurse to call [facility] for device check please. (2) Chronic diastolic heart failure Current Visit: No Status: Acute Plan: looks euvolemic on exam re start lasix 20 mg daily re start lisinopril 20 mg daily monitor input and output and electrolytes. (3) History of transcatheter aortic valve implantation (AGNIESZKA) Current Visit: No Status: Acute Plan: outpatient follow up with cardiology for updated echo
[2025-06-14 14:45] VITALS: O2SAT 94
[2025-06-14 17:36] VITALS: BP 146/68; TEMP 98.5
--- NOTE | 2025-06-15 07:43 | ECHO ---
HEIGHT: 5 ft 6 in WEIGHT: 244 lb 0 oz DATE OF STUDY: 06/14/[address]: Abner Dc MD 2-DIMENSIONAL: YES M.MODE: YES DOPPLER: YES COLOR FLOW: YES TDS: YES PORTABLE: YS DEFINITY: BUBBLE STUDY: DIAGNOSIS: CONGESTIVE HEART FAILURE CARDIAC HISTORY: CATHERIZATION: YES SURGERY: YES PROSTHETIC VALVE: NO PACEMAKER: YES MEASUREMENTS (cm) DIASTOLIC (NORMALS) SYSTOLIC (NORMALS) IVSd 1.3 (0.6-1.2) LA Diam 4.3 (1.9-4.0) LVEF 60-65% LVIDd 5.1 (3.5-5.7) LVIDs 3.6 (2.0-3.5) %FS 29% LVPWd 1.3 (0.6-1.2) Ao Diam 2.8 (2.0-3.7) 2 DIMENSIONAL ASSESSMENT: RIGHT ATRIUM: NORMAL LEFT ATRIUM: MILDLY DILATED RIGHT VENTRICLE: NORMAL, PACEMAKER LEAD LEFT VENTRICLE: MILD LEFT VENTRICULAR HYPERTROPHY TRICUSPID VALVE: MILD TRICUSPID REGURGITATION MITRAL VALVE: SEVERE MITRAL ANNULAR CALCIFICATION, MILD MITRAL REGURGITATION PULMONIC VALVE: NORMAL AORTIC VALVE: BIOPROSTHETIC PERICARDIAL EFFUSION: NONE AORTIC ROOT: NORMAL LEFT VENTRICULAR WALL MOTION: NORMAL DOPPLER/COLOR FLOW: DIASTOLIC DYSFUNCTION COMMENTS: 1. NORMAL LEFT VENTRICULAR SYSTOLIC FUNCTION, EJECTION FRACTION 60-65, NORMAL WALL MOTION 2. DIASTOLIC DYSFUNCTION 3. BIOPROSTHETIC AORTIC VALVE (DOPPLER VELOCITY INDEX 0.84) 4. SEVERE MITRAL ANNULAR CALCIFICATION, MILD MITRAL REGURGITATION 5. MODERATE PULMONARY HYPERTENSION (RIGHT VENTRICULAR SYSTOLIC PRESSURE 50-55 mmHg) 6. NORMAL FILLING PRESSURE TECHNOLOGIST: LAILA SAVAGE
== END 2025-06-14 18:34 | DRG 378 ==
LOC: ER 00:27 → ERHOLD 06:46 → 2ND 15:14
PROVIDERS: ADMIT Family Medicine; ATTEND Hospitalist
PROC: 0DB88ZX Excision of Small Intestine, Via Natural or Artificial Opening Endoscopic, Diagnostic (ICD-10-PCS; 2025-06-09)
PROC: 0DB78ZX Excision of Stomach, Pylorus, Via Natural or Artificial Opening Endoscopic, Diagnostic (ICD-10-PCS; 2025-06-09)
PROC: 0DJD8ZZ Inspection of Lower Intestinal Tract, Via Natural or Artificial Opening Endoscopic (ICD-10-PCS; 2025-06-09)
PROC: 0DB68ZX Excision of Stomach, Via Natural or Artificial Opening Endoscopic, Diagnostic (ICD-10-PCS; 2025-06-09 13:00)
PROC: 30233N1 Transfusion of Nonautologous Red Blood Cells into Peripheral Vein, Percutaneous Approach (ICD-10-PCS; principal; 2025-06-11)
DX: K25.4 Chronic or unspecified gastric ulcer with hemorrhage (principal); I50.32 Chronic diastolic (congestive) heart failure; I11.0 Hypertensive heart disease with heart failure; K29.71 Gastritis, unspecified, with bleeding; K64.8 Other hemorrhoids; E03.9 Hypothyroidism, unspecified; E78.00 Pure hypercholesterolemia, unspecified; E66.9 Obesity, unspecified; I05.0 Rheumatic mitral stenosis; I49.8 Other specified cardiac arrhythmias; K44.9 Diaphragmatic hernia without obstruction or gangrene; K57.31 Diverticulosis of large intestine without perforation or abscess with bleeding; I25.10 Atherosclerotic heart disease of native coronary artery without angina pectoris; F03.90 Unspecified dementia, unspecified severity, without behavioral disturbance, psychotic disturbance, mood disturbance, and anxiety; Z88.0 Allergy status to penicillin; Z95.0 Presence of cardiac pacemaker; Z88.8 Allergy status to other drugs, medicaments and biological substances; Z79.82 Long term (current) use of aspirin; Z79.01 Long term (current) use of anticoagulants; Z68.39 Body mass index [BMI] 39.0-39.9, adult; Z90.49 Acquired absence of other specified parts of digestive tract; Z86.73 Personal history of transient ischemic attack (TIA), and cerebral infarction without residual deficits; Z79.899 Other long term (current) drug therapy; Z79.890 Hormone replacement therapy; Z96.653 Presence of artificial knee joint, bilateral
CPT/HCPCS: 36415; 71045; 71275; 74177; 80048; 80053; 80076; 81001; 82947; 83605; 83690; 83735; 83880; 84132; 84484; 85014; 85018; 85025; 85379; 85610; 85730; 86850; 86900; 86901; 86920; 88305; 88312; 93005; 93306; 94640; 96374; 97110; 97116; 97163; 97530; 99284; J0171; J0696; J1938; J2003; J2470; J2704; J2919; J3480; J7030; J7040; J7050; J7613; J7644; P9016; Q9967